=== PATIENT | female | born 1945 | race Caucasian/White ===

== ENCOUNTER → 2019-03-20 12:12 | Outpatient (CLI) | payer MEDICARE, MEDICAID, SELFPAY ==
[2019-03-20 12:47] LABS: Absolute Lymphocyte Count 2.55 X10^3/ul (0.83-4.51); Absolute Neutrophil Count 2.3 X10^3/uL (2.0-7.7); Basophil# 0.02 X10^3/uL; Basophil% 0.4 % (0-1); Eosinophil# 0.12 X10^3/uL; Eosinophils% 2.3 % (0-5); Hematocrit 37.8 % (37-47); Hemoglobin 12.8 g/dl (12.0-15.0); Lymphocyte # 2.55 X10^3/ul (4.0); Lymphocyte % 48.4 % (19-41); Mean Corp Hgb Conc 33.9 g/gl (32-36); Mean Corpuscular Hgb 30.3 pg (27.0-32.0); Mean Corpuscular Volume 89.6 fL (81-99); Mean Platelet Vol. 8.8 fl (6.2-12.0); Monocyte# 0.32 X10^3/uL; Monocyte% 6.1 % (0-10); Neutrophil # 2.25 X10^3/uL (2.7-7.7); Neutrophil % 42.6 % (47-70); Platelet Count 312 K/mm3 (150-450); RBC Distribution Width CV 14.6 % (11.6-14.6); RBC Distribution Width SD 47.5 fl (35.1-43.9); Red Blood Count 4.22 M/mm3 (4.2-5.4); White Blood Count 5.3 K/mm3 (4.4-11.0)
[2019-03-20 12:49] LABS: POSITIVE COUNT NO; POSITIVE DIFFERENTIAL NO; POSITIVE MORPHOLOGY NO
[2019-03-20 12:54] LABS: International Normalized Ratio 3.6; Prothrombin Time (Protime)PT. 36.1 SECONDS (11.7-14.9)
[2019-03-20 13:24] LABS: Hemoglobin A1c 7.9 % (4.2-6.3)
[2019-03-20 13:30] LABS: AST(SGOT) 17 U/L (15-37); Alanine Aminotransfer ALT/SGPT 18 U/L (13-56); Albumin, Serum 3.7 g/dL (3.2-5.0); Alkaline Phosphatase 53 U/L (45-117); Anion Gap 7 (5-15); BUN 8 mg/dL (7-18); BUN/Creat Ratio 13.7 RATIO (10-20); Calcium,Total 8.5 mg/dL (8.5-10.1); Chloride 103 mmol/L (98-107); Cholesterol 165 mg/dL (200); Creatinine, Serum 0.58 mg/dL (0.55-1.02); EST Glomerular Filtration Rate 108 mL/min (>60); Est Glom Filt Rate - Afr Amer 131 mL/min (>60); Globulin 3.6 g/dL (2.2-4.2); Glucose 106 mg/dL (74-106); High Density Lipoprotein 32 mg/dL; Potassium 2.9 mmol/L (3.5-5.1); Protein, Total 7.3 g/dL (6.4-8.2); Sodium Level 137 mmol/L (136-145); Thyroid Stim Hormone (TSH) 0.54 uIU/mL (0.358-3.74); Triglycerides 203 mg/dL; Very Low Density Lipoprotein 41 mg/dL (5-40)
== END ==
PROVIDERS: Visit Provider Nurse Practitioner Adult Health
DX: I10 Essential (primary) hypertension (principal); E78.2 Mixed hyperlipidemia; F41.1 Generalized anxiety disorder; R73.01 Impaired fasting glucose; Z95.2 Presence of prosthetic heart valve; Z86.73 Personal history of transient ischemic attack (TIA), and cerebral infarction without residual deficits
CPT/HCPCS: 36415; 80053; 80061; 83036; 84443; 85025; 85610

== ENCOUNTER → 2019-03-22 11:33 | Outpatient (CLI) | payer MEDICARE, MEDICAID, SELFPAY ==
[2019-03-22 13:19] LABS: International Normalized Ratio 2.6; Prothrombin Time (Protime)PT. 27.9 SECONDS (11.7-14.9)
== END ==
PROVIDERS: Family Provider Nurse Practitioner Adult Health; PCP Nurse Practitioner Adult Health; Referring Provider Nurse Practitioner Adult Health; Visit Provider Nurse Practitioner Adult Health
DX: Z86.73 Personal history of transient ischemic attack (TIA), and cerebral infarction without residual deficits (principal)
CPT/HCPCS: 36415; 85610

== ENCOUNTER → 2019-03-26 16:55 | Outpatient (CLI) | payer MEDICARE, MEDICAID, SELFPAY | PROVIDERS: Family Provider Nurse Practitioner Adult Health; PCP Nurse Practitioner Adult Health | DX: J41.8 Mixed simple and mucopurulent chronic bronchitis (principal); I10 Essential (primary) hypertension; F41.1 Generalized anxiety disorder ==

== ENCOUNTER → 2019-03-28 | Outpatient (CLI) | payer MEDICARE, MEDICAID, SELFPAY ==
--- NOTE | 2019-03-28 15:40 | RAD_ITS ---
HISTORY: Left shoulder pain radiating from neck. COMPARISON: None FINDINGS: # of images incl. paperwork: 4 XR Spine Cervical 4 images. Findings: The patient is edentulous. Sternal wires and mediastinal clips. With use of the swimmer's lateral, bony alignment is evaluated from the skull base to T1. Alignment is normal. Vertebral body height is preserved. Degenerative disc disease is present at several levels, greatest at the C4-C5 level. Facets are arthropathic. Prevertebral and paraspinal soft tissues are normal. Uncovertebral hypertrophy is present at several levels. The odontoid is normal in its relationship to lateral masses without fracture. Hardware fixation from craniotomy. RAD/Cerv Spine 2 or 3 Views IMPRESSION: No acute fracture or traumatic subluxation of the cervical spine. at 0544 Reported and signed by: Watson Egan MD Electronically Signed: Watson Egan MD at 5:43 EDT Tel , Service support ,
--- NOTE | 2019-03-28 15:40 | RAD_ITS ---
HISTORY: PAIN TO SACRUM AND LOW BACK, HX OF SACRAL FX AND PELVIC FX IN PAST COMPARISON: None FINDINGS: # of images incl. paperwork: 3 XR Sacrum/Coccyx 3 Views: Aortic and iliac atherosclerotic disease. Sacroiliac joint arthritis. No displaced fractures are identified. The SI joints are unremarkable. The sacral neural foramina appear intact. The most inferior coccygeal segment is subluxed anterior low date to the second coccygeal segment. RAD/Sacrum-Coccyx min 2 Views IMPRESSION: Possible anterior subluxation of the bottom coccygeal segment due to ligamentous disruption. at 0546 Reported and signed by: Watson Egan MD Electronically Signed: Watsno Egan MD at 5:45 EDT Tel , Service support ,
[2019-03-28 17:04] LABS: Amphetamine Urine VISTA NEGATIVE (<1000 ng/mL); Barbiturate Urine VISTA NEGATIVE (< 200 ng/mL); Benzodiazepine Urine VISTA NEGATIVE (< 200 ng/mL); Cocaine Urine VISTA NEGATIVE (< 300 ng/mL); Ecstacy Urine VISTA NEGATIVE (< 500 ng/mL); Methadone Urine VISTA NEGATIVE (< 300 ng/mL); PCP Urine VISTA NEGATIVE (< 25 ng/mL); THC Urine VISTA NEGATIVE (< 50 ng/mL); Vista UDS pH Range 6
== END | disposition home or self-care (01) ==
PROVIDERS: Family Provider Nurse Practitioner Adult Health; PCP Nurse Practitioner Adult Health; Referring Provider Anesthesiology Pain Medicine; Visit Provider Anesthesiology Pain Medicine
DX: M54.2 Cervicalgia (principal); M54.9 Dorsalgia, unspecified; F11.20 Opioid dependence, uncomplicated
CPT/HCPCS: 72040; 72220; 80307

== ENCOUNTER 2019-06-22 12:21 | Inpatient (IN) | payer MEDICARE, SELFPAY ==
[2019-06-22] VITALS (10 sets, daily range): BP systolic 80–116; BP diastolic 40–72; PULSE 80–116; RESP 14–18; TEMP 36.4–37.6; O2SAT 92–100; BMI 19.9; BMI 21.4; BMI 21.5
--- NOTE | 2019-06-22 12:36 | CT_ITS ---
STUDY: CT BRAIN WITHOUT CONTRAST REASON FOR EXAM: Female, 73 years old. Confusion. RADIATION DOSAGE (If Supplied By Facility): CTDIvol = ( 44.99 ) mGy, DLP = ( 745.49 ) mGycm TECHNIQUE: Transaxial CT imaging of the brain was performed without administration of intravenous contrast material. Individualized dose optimization techniques were used for this CT. COMPARISON: No relevant priors. FINDINGS: Normal soft tissue structures. Normal calvarium. There is mild cerebral atrophy with widening of the extra-axial spaces and ventricular dilatation. There are areas of decreased attenuation within the white matter tracts of the supratentorial brain, consistent with microvascular disease changes. Focal encephalomalacia in the left frontal lobe in keeping with prior ischemic change. Small old lacunar infarct in the posterior aspect of the insular cortex of the right temporal lobe as well as the left temporal lobe. Normal brainstem. Normal cerebellum. There is no intracranial hemorrhage. There are no findings of an acute ischemic infarction. Atherosclerotic calcification of the vertebral arteries as well as the cavernous portions of the internal carotid arteries bilaterally. Normal visualized paranasal sinuses. CT/Brain/Head without Contrast IMPRESSION: Chronic involutional changes of the brain. Electronically Signed: Ander Grider, at 13:35 EDT , Service support ,
--- NOTE | 2019-06-22 12:36 | RAD_ITS ---
STUDY: X-RAY CHEST REASON FOR EXAM: Female, 73 years old. Confusion. Intermittent headaches. TECHNIQUE: Single AP portable view of the chest. COMPARISON: None. FINDINGS: EKG electrodes are seen. Minimal increased linear markings are seen at the lung bases suggest some mild bibasilar linear atelectasis. There is no demonstrated pleural abnormality. Sternal cerclage wires and vascular clips are present from a prior sternotomy and coronary artery bypass graft procedure (CABG). Normal mediastinum and corky. Normal visualized pulmonary arteries. There is atherosclerotic calcification of the aortic arch with tortuosity. There are diffuse degenerative changes of the visualized thoracic spine. Normal visualized ribs, clavicles, and shoulders. There is no demonstrated abnormality of the visualized soft tissue structures of the upper abdomen. RAD/Chest 1 View (Portable) IMPRESSION: Findings suggestive of intimal linear atelectasis at the lung bases. Electronically Signed: Ander Grider, at 13:09 EDT , Service support ,
--- NOTE | 2019-06-22 12:36 | EKG12_ITS ---
Test Reason : CONFUSION Blood Pressure : / mmHG Vent. Rate : 107 BPM Atrial Rate : 062 BPM P-R Int : 000 ms QRS Dur : 074 ms QT Int : 518 ms P-R-T Axes : 000 050 055 degrees QTc Int : 691 ms Normal Sinus Rhythm with PAC's Cannot rule out Inferior infarct , age undetermined Prolonged QT Non-specific ST-T wave changes Abnormal ECG Confirmed by MAURISIO DELEON ([id number]), legal editor SLADE MAN ([id number]) on 06/28/2019 9:42:00 AM Referred By: Jose Miguel Mallory Confirmed By:MAURISIO DELEON
--- NOTE | 2019-06-22 12:37 | ED.RN ---
Dtr at bedside, noted that pt has been confused x3 days. Normal A&Ox3.
--- NOTE | 2019-06-22 13:02 | NURSING ---
NO OLD EKGS
[2019-06-22 13:04] LABS: Absolute Lymphocyte Count 0.76 X10^3/uL (0.83-4.51); Basophil# 0.01 X10^3/uL; Basophil% 0.1 % (0-1); Eosinophil# 0.01 X10^3/uL; Eosinophils% 0.1 % (0-5); Hemoglobin 12.6 g/dL (12.0-15.0); Lymphocyte # 0.76 X10^3/ul (4.0); Lymphocyte % 10.1 % (19-41); Mean Corpuscular Hgb 30.7 pg (27.0-32.0); Mean Corpuscular Volume 87.8 fL (81-99); Mean Platelet Vol. 10.2 fl (6.2-12.0); Monocyte# 0.68 X10^3/uL; Monocyte% 9.1 % (0-10); NRBC Flagged by Analyzer 0 % (0-5); Neutrophil # 5.98 X10^3/uL (2.7-7.7); Neutrophil % 79.7 % (47-70); Platelet Count 191 K/mm3 (150-450); RBC Distribution Width CV 12.7 % (11.6-14.6); RBC Distribution Width SD 40.8 fl (35.1-43.9); White Blood Count 7.5 K/mm3 (4.4-11.0)
[2019-06-22 13:17] LABS: International Normalized Ratio 1.3; Prothrombin Time (Protime)PT. 16.4 SECONDS (11.7-14.9)
[2019-06-22 13:25] LABS: ALB/GLOB Ratio 0.6 RATIO (0.9-2.4); AST(SGOT) 9 U/L (15-37); Alanine Aminotransfer ALT/SGPT 13 U/L (13-56); Albumin, Serum 2.8 g/dL (3.2-5.0); Alkaline Phosphatase 63 U/L (45-117); Anion Gap 10 (5-15); BUN 34 mg/dL (7-18); Calcium,Total 10.4 mg/dL (8.5-10.1); Chloride 97 mmol/L (98-107); Creatinine, Serum 1.31 mg/dL (0.55-1.02); EST Glomerular Filtration Rate 43 mL/min (>60); Est Glom Filt Rate - Afr Amer 51 mL/min (>60); Estimated Creatinine Clearance 28.29 ml/min; Glucose 361 mg/dL (74-106); Protein, Total 7.8 g/dL (6.4-8.2); Sodium Level 131 mmol/L (136-145)
[2019-06-22 13:29] LABS: Lactic Acid 2.2 mmol/L (0.4-2.0)
--- NOTE | 2019-06-22 14:20 | ED.VIS.GEN ---
History of Present Illness Chief Complaint: Confusion Narrative: 73-year-old female presents with confusion, general weakness, and twitching. She has a history of brain bypass but she and her daughter did not recall exactly what the surgery was. It was approximately 2009. She had some sort of instrumentation on her brain which they state was fairly extensive. She was having multiple seizures prior to this and they seem to resolve afterwards. For the past 4 days now, she has been confused, generally weak, and shaking all over. No seizure activity, just a tremor. She has also been complaining of fairly severe intermittent headaches in the frontal region. No slurred speech. No lateralizing weakness. She also has a history of urinary tract infections and has presented similarly in the past. Current severity is moderate Past Medical History - Allergies and Home Meds Allergies/Adverse Reactions: Allergies Iodinated Contrast Media [CONTRASTS] Allergy (Mild, Verified 06/22/19 12:49) Unknown pt unknown of allergy reaction Primary Care Physician: Cyndi Gutierrez, ARTI-C [Primary Care Provider] - Smoking Status: Current every day smoker Review of Systems All systems negative except as indicated General: Denies: Chills, Fever, Sweats Eyes: Denies: Visual changes - bilaterally, Diplopia ENT: Denies: Rhinorrhea, Sore throat Cardiovascular: Denies: Chest pain, Palpitations Respiratory: Denies: Dyspnea, Cough, Dyspnea on exertion Gastrointestinal: Reports: Nausea. Denies: Abdominal pain, Vomiting, Diarrhea, Melena, Hematochezia Genitourinary: Denies: Dysuria, Hematuria, Frequency Musculoskeletal: Reports: Myalgias. Denies: Back pain, Extremity Pain Skin: Denies: Rash, Wounds Neurological: Reports: Headache, Weakness. Denies: Numbness Endocrine: Denies: Polydipsia Hematologic: Denies: Easy bruising Physical Exam Vital Signs/Narrative: Vital Signs Temp Pulse Resp BP Pulse Ox 06/22/19 12:32 99.6 F H 106 H 14 116/59 L 94 06/22/19 12:22 97.7 F L 116 H 18 106/52 L 92 General: Cachectic Head: Normocephalic, Atraumatic Eyes: Perrl, EOMI ENT: No rhinorrhea, Dry mucous membranes Neck: Supple, Nontender Cardiovascular: Regular rate, Regular rhythm, No murmurs Respiratory: No distress, CTA bilaterally, Chest nontender Abdomen: Soft, Nontender, Nondistended, Normal bowel sounds Back: Nontender, Normal Inspection Extremities: Nontender, No edema Skin: Normal color, No rash Neurological: Alert, Oriented x3, Cranial nerves II-XII grossly intact, Normal Strength, Normal Sensation Psychological: Normal affect, Normal Mood Diagnostic/Tx/Re-eval - Medical Decision Making Lactic acid slightly elevated at 2.2. No significant leukocytosis. She does have a temperature of 99.[address] brain and chest x-ray both negative but urine does look infected. It is loaded with leukocytes, 4+ bacteria, and leukoesterase. I sent it for culture and send blood cultures as well. She was treated with IV Rocephin. Presumably this is the source for her delirium. Her neurologic exam is fairly unremarkable. Speech is clear. No significant confusion here but her daughter states that she has been intermittently delirious. With her multiple comorbidities, urinary tract infection, and delirium, I do feel she meets criteria for full admission and requires intravenous antibiotics. I do not suspect meningitis or encephalitis at this time. I spoke with the hospitalist and she was admitted. EKG interpretation-sinus tachycardia, rate 107, no acute ischemic changes, QTC slightly prolonged at 691. No prior for comparison. ED Disposition - Plan for ED Patient: Disposition: Acute Care [facility] Diagnosis: UTI (urinary tract infection), Acute delirium Referrals: Cyndi Gutierrez, AG [employer] FIELD SERVICE TECHNICIAN-C [Primary Care Provider] -
[2019-06-22 14:36] LABS: Mucous, Urine 0 SEEN /hpf (<or=2+); Red Blood Cells-Urine 0 SEEN /hpf (0-5); Squamous Epithelial Cells - UA 0 SEEN /hpf (5-10)
[2019-06-22 14:55] LABS: Color, Urine Yellow (Yellow); Glucose, Dipstick 250 mg/dl (Normal); Ketone-Dipstick 5 mg/dl (Negative); Leukocyte Esterase-Dipstick 500 /ul (Negative); Nitrite-Dipstick Negative (Negative); Occult Blood-Urine 25 /ul (Negative); Protein-Dipstick 100 mg/dl (Negative); Specific Gravity, Urine 1.015 (1.002-1.030); Urine Bilirubin Dipstick Negative (Negative); Urine Clarity Cloudy (Clear); Urine Urobilinogen Normal (Normal)
[2019-06-22 15:08] LABS: White Blood Cells 50-100 SEEN /hpf (0-5)
[2019-06-22 15:09] LABS: Amorphous Sediment 1+; Bacteria 4+ /hpf (None Seen)
--- NOTE | 2019-06-22 15:47 | NURSING ---
DR DINH FOR DR OLIVAS
--- NOTE | 2019-06-22 15:55 | NURSING ---
DR DINH IN ROOM
--- NOTE | 2019-06-22 15:55 | NURSING ---
MED SURG CYSTITIS, ACUTE KIDNEY INJURY FABRIZIO
--- NOTE | 2019-06-22 16:06 | HP.PCM_ITS ---
Problem List (1) COPD (chronic obstructive pulmonary disease) Status: Chronic (2) History of colon cancer Status: Chronic (3) Hyperlipidemia Status: Chronic (4) Migraine Status: Chronic (5) Status post coronary artery bypass graft Status: Chronic (6) Coronary artery disease Status: Chronic Comment: Status post CABG and stents. (7) Atrial fibrillation Status: Chronic (8) Hypertension Status: Chronic (9) UTI (urinary tract infection) Status: Acute (10) Acute delirium Status: Acute History of Present Illness Date of Admission: 06/22/19 Chief Complaint: Confusion, headache. The patient is a 73 year old F with multiple medical comorbidities as mentioned above presented to the emergency room because of confusion and headache. The patient herself is a poor informant and was not able to provide consistent history. Patient's daughter was at the bedside and gave most of the information. According to patient's daughter, patient has been having issues with confusion and disorientation which was noticed today by the patient's at home. Usually, the patient is alert and related x3 but this morning, she has been confused, not knowing when she is going to and she did not know where she is at. When I saw the patient, patient was alert and oriented x3. The patient complained of headache on the right frontal region that has been going on for 3 days and she attributes the headache to the migraine. She has history of stroke and according to the patient's daughter, she had some type of brain surgery at that time but she is not sure what type of it. She has history of CAD status post CABG and stents and she has been on Plavix, nitrate and beta- ranjan as well as for infiltrate. She has history of hypertension which has been under control with metoprolol and nitrates. She has history of chronic atrial fibrillation and she has been on metoprolol for rate control and Coumadin for anticoagulation. She has history of colon cancer status post colectomy and she is in remission. In the emergency department, patient was afebrile, tachycardic, blood pressure was stable, pulse ox maintained on room air. Routine blood work was remarkable for sodium of 131, BUN of 34, creatinine is 1.31. Blood glucose was 361. Lactic acid was 2.2. EKG revealed fibrillation, rate is controlled, no acute ischemic changes. Troponin is negative. Urinalysis revealed cloudy urine, there was 500 leukocyte esterase, 50-100 WBCs, 4+ bacteria. CT scan brain showed no acute findings. Chest x-ray showed no acute infiltrate, consolation or effusion. She is being admitted for acute cystitis with metabolic encephalopathy/delirium as well as acute kidney injury and hyponatremia. Past Medical History Past Medical History (Chronic Problems): Chronic Problems COPD (chronic obstructive pulmonary disease) (Chronic) History of colon cancer (Chronic) Hyperlipidemia (Chronic) Migraine (Chronic) Status post coronary artery bypass graft (Chronic) Coronary artery disease (Chronic) Status post CABG and stents. Atrial fibrillation (Chronic) Hypertension (Chronic) Allergies Iodinated Contrast Media [CONTRASTS] Allergy (Mild, Verified 06/22/19 12:49) Unknown pt unknown of allergy reaction Home Medications: Ambulatory Orders Medication Instructions Recorded Cetirizine HCl 10 mg PO DAILY 06/22/19 Clopidogrel Bisulfate [Clopidogrel] 75 mg PO DAILY 06/22/19 Duloxetine Hcl [Cymbalta] 60 mg PO QHS 06/22/19 Ergocalciferol [Vitamin D] 50,000 unit PO MO 06/22/19 Fenofibrate 54 mg PO DAILY 06/22/19 Hydrocodone/Acetaminophen 1 tab PO BID 06/22/19 [Hydrocodone-Acetamin 5-325 mg] Isosorbide Mononitrate 10 mg PO BID 06/22/19 Metoprolol Succinate [Toprol Xl] 25 mg PO DAILY 06/22/19 Montelukast [Singulair] 10 mg PO QHS 06/22/19 Omeprazole 20 mg PO DAILY 06/22/19 Ropinirole HCl 2 mg PO BID 06/22/19 Topiramate 25 mg PO QHS 06/22/19 Trazodone HCl 100 mg PO QHS 06/22/19 Warfarin [Coumadin ([facility])] 3 mg PO DAILY 06/22/19 Surgical History: cholecystectomy, colectomy, coronary bypass surgery Psychiatric History: Depression Lives: Spouse/ Significant Other Smoking Status: Current every day smoker Tobacco Use: Cigarettes Alcohol: None Drugs: None - *Family History Maternal History Items: No pertinent history Paternal History Items: No pertinent history Review of Systems Constitutional: Reports: Anorexia, Weakness. Denies: Chills, Fever Eyes: Denies: Blurred vision, Double vision, Drainage, Redness HEENT: Reports: Head Aches. Denies: Difficulty Hearing, Ear Pain, Eye Pain, Nasal bleeding, Nasal Congestion, Sinus Drainage, Sore Throat Cardiovascular: Denies: Chest Pain, Chest Pressure, Chest Tightness, Heaviness, Light Headedness, Palpitations, Paroxysmal Noc. Dyspnea, Syncope Respiratory: Denies: Cough, Pleuritic Pain, Shortness of Breath, Sputum production, Wheezing Gastrointestinal: Denies: Abdominal Pain, Constipation, Diarrhea, Nausea, Vomiting Genitourinary: Reports: Frequency. Denies: Dysuria, Hematuria Musculoskeletal: Denies: Arm Pain, Back Pain, Foot Pain Skin: Denies: Dryness, Rash Neurological: Reports: Confusion, Headaches. Denies: Balance problems, Double vision, Change in Speech, Slurred speech, Focal weakness, Incoordination, Numbness Psychiatric: Reports: Depression. Denies: Anxiety Endocrine: Denies: Change in Body Habitus, Polydipsia, Polyuria VTE Information - Inpt Only VTE Present on Admission: No VTE Mechan Device Prophylaxis: None VTE Pharm Prophylaxis ordered?: No Patient Problems: Active and Suspected Problems UTI (urinary tract infection) (Acute) Acute delirium (Acute) - Physical Exam General: Alert, Oriented x3, Cooperative, No apparent distress HEENT: Atraumatic, PERRLA, EOMI, Normocephalic Oral: No Gingival or Mucosal Lesions/ Ulcerations, Dry Mucosa Neck: Supple, No JVD, Negative Carotid Bruits, Trachea Midline, Thyroid Normal Size and Texture Lungs: Clear to auscultation, Normal air movement, No rhonchi, No wheeze, No rales, Diminished Cardiovascular: Normal S1, Normal S2, No murmurs, PMI Normal, Irregular Rate Abdomen: Bowel Sounds Present, Soft, Non Tender, Non-Distended, No Hepato- splenomegaly Extremities: No clubbing, No cyanosis, No edema Skin: No rashes, No breakdown Lymphatic: No Cervical, Supraclavicular, or Inguinal Adenopathy Neurological: Cranial nerves II-XII grossly intact, Motor Exam 5/5 strength throughout Psych/Mental Status: Normal Affect, Appropriate Vital Signs Temp Pulse Resp BP Pulse Ox 99.6 F H 82 14 114/59 L 97 06/22/19 12:32 06/22/19 15:31 06/22/19 15:31 06/22/19 15:31 06/22/19 15:31 Oxygen Flow Rate (L/min) 3 Oxygen Delivery Method Room Air Weight: 102 lb Body Mass Index (BMI) 19.9 Intake and Output for Last 24 Hours 06/20/19 06/21/19 06/22/19 23:59 23:59 23:59 Intake Total 500 / 500 Balance 500 / 500 Laboratory Tests Past 24 Hrs 06/22/19 06/22/19 06/22/19 12:45 12:45 12:45 WBC 7.5 RBC 4.10 L Hgb 12.6 Hct 36.0 L MCV 87.8 MCH 30.7 MCHC 35.0 RDW Std Deviation 40.8 RDW Coeff of Saige 12.7 Plt Count 191 MPV 10.2 Immature Gran % (Auto) 0.900 Neut % (Auto) 79.7 H Lymph % (Auto) 10.1 L Caswell % (Auto) 9.1 Eos % (Auto) 0.1 Baso % (Auto) 0.1 Absolute Neuts (auto) 6.0 Absolute Lymphs (auto) 0.76 L Nucleated RBC % 0 PT 16.4 H INR 1.3 Sodium 131 L Potassium 4.0 Chloride 97 L Carbon Dioxide 24.0 Anion Gap 10 BUN 34 H Creatinine 1.31 H Estim Creat Clear Calc 28.29 Est GFR (MDRD) Af Amer 51 L Est GFR (MDRD) Non-Af 43 L BUN/Creatinine Ratio 26.0 H Glucose 361 H Lactic Acid Calcium 10.4 H Total Bilirubin 0.40 AST 9 L ALT 13 Alkaline Phosphatase 63 Troponin I < 0.015 Total Protein 7.8 Albumin 2.8 L Globulin 5.0 H Albumin/Globulin Ratio 0.6 L Urine Color Urine Clarity Urine pH Ur Specific [place] Urine Protein Urine Glucose (UA) Urine Ketones Urine Occult Blood Urine Nitrite Urine Bilirubin Urine Urobilinogen Ur Leukocyte Esterase Urine RBC Urine WBC Ur Squamous Epith Cells Amorphous Sediment Urine Bacteria Urine Mucus 06/22/19 06/22/19 12:45 14:35 WBC RBC Hgb Hct MCV MCH MCHC RDW Std Deviation RDW Coeff of Saige Plt Count MPV Immature Gran % (Auto) Neut % (Auto) Lymph % (Auto) [place] % (Auto) Eos % (Auto) Baso % (Auto) Absolute Neuts (auto) Absolute Lymphs (auto) Nucleated RBC % PT INR Sodium Potassium Chloride Carbon Dioxide Anion Gap BUN Creatinine Estim Creat Clear Calc Est GFR (MDRD) Af Amer Est GFR (MDRD) Non-Af BUN/Creatinine Ratio Glucose Lactic Acid 2.2 H Calcium Total Bilirubin AST ALT Alkaline Phosphatase Troponin I Total Protein Albumin Globulin Albumin/Globulin Ratio Urine Color Yellow Urine Clarity Cloudy Urine pH 5.0 Ur Specific [place] 1.015 Urine Protein 100 H Urine Glucose (UA) 250 H Urine Ketones 5 H Urine Occult Blood 25 H Urine Nitrite Negative Urine Bilirubin Negative Urine Urobilinogen Normal Ur Leukocyte Esterase 500 H Urine RBC 0 SEEN Urine WBC 50-100 SEEN Ur Squamous Epith Cells 0 SEEN Amorphous Sediment 1+ Urine Bacteria 4+ Urine Mucus 0 SEEN Clinical Impression(s) from Imaging Studies Brain CT 06/22/19 12:36 IMPRESSION: Chronic involutional changes of the brain. Electronically Signed: Ander Grider, at 13:35 EDT , Service support , Chest X-Ray 06/22/19 12:36 IMPRESSION: Findings suggestive of intimal linear atelectasis at the lung bases. Electronically Signed: Ander Grider, at 13:09 EDT , Service support , Assessment/Plan All Active Problems UTI (urinary tract infection) (Acute) Acute delirium (Acute) This is a 73 years old female patient presented to the emergency room because of confusion, headache and poor oral intake, found to have acute cystitis complicated by metabolic encephalopathy as well as acute kidney injury and hyponatremia. #1 acute cystitis: Without evidence of sepsis or severe sepsis. Lactic acid is elevated. Chest x-ray showed no acute findings. Plan: Admit to Medr floor, telemetry, blood culture, urine culture, start IV Rocephin, repeat lactic acid in 3 hours, repeat CBC and BMP tomorrow morning, PT OT evaluation and treatment. #2 metabolic encephalopathy/delirium: Probably secondary to acute infection. CT scan brain showed no acute findings. Patient complained of headache which is likely because of migraine. #3 acute kidney injury/hyponatremia: Due to infection and poor oral intake. Baseline creatinine is normal. Admission creatinine is 1.31, BUN is 34. Sodium is 131 likely because of hypovolemic hyponatremia. Plan: IV fluids with normal saline, input output chart, repeat BMP tomorrow morning. #4 hyperglycemia: Without history of diabetes. Blood sugar on admission is 361. Plan: Hemoglobin SC, Accu-Cheks every 6 hours, insulin sliding scale. #5 CAD status post CABG and stents: No chest pain, stable. Continue Plavix, fenofibrate, nitrate and metoprolol. #6 chronic atrial fibrillation: Rate is controlled, continue metoprolol for rate control and continue Coumadin for anticoagulation. INR is 1.3. #7 hypertension: Blood pressure stable, continue nitrate and metoprolol. #8 hyperlipidemia: Continue fenofibrate. #9 history of colon cancer: Status post colectomy, in remission. #10 COPD: Clinically stable, pulse ox is maintained on room air. Plan for albuterol as needed. #11 migraine: Continue Topamax, Tylenol as needed. #12 DVT prophylaxis: On Coumadin, INR is 1.3. This note was generated with Pulse 8 dictation software. It may contain incorrect words, spelling, and punctuation that were not noted in checking the note before signing. Code Visit Inpatient E&M: 94432 Init Hosp L3
[2019-06-22] MEDS: Ceftriaxone 1 GM/50 ML BAG IV (16:17)
--- NOTE | 2019-06-22 16:22 | NURSING ---
NEW ROOM 322
[2019-06-22 16:57] LABS: Reflex Lactate? Y
[2019-06-22 17:57] LABS: Lactic Acid 1.6 mmol/L (0.4-2.0)
[2019-06-22] MEDS: 0.9% Normal Saline 1,000 ML 100 ML IV (18:41)
[2019-06-22] MEDS: Acetaminophen 325 MG Tablet 650 MG PO (18:44)
[2019-06-22] MEDS: Insulin Lispro 100 UNIT/ML INSULN.PEN SC (18:45)
[2019-06-22 20:36] LABS: Bedside Glucose 208 mg/dL (70-110)
[2019-06-22] MEDS: 0.9% Normal Saline 1,000 ML 999 ML IV (21:07)
[2019-06-22] MEDS: DULoxetine Hcl 60 MG Capsule PO (22:31)
[2019-06-22] MEDS: traZODone 100 MG Tablet PO (22:33)
[2019-06-22] MEDS: Pramipexole Di-HCl 1 MG Tablet PO (22:33)
[2019-06-22] MEDS: Montelukast 10 MG Tablet PO (22:34)
[2019-06-22] MEDS: Topiramate 25 MG Tablet PO (22:47)
[2019-06-23] VITALS (11 sets, daily range): BP systolic 93–118; BP diastolic 50–70; PULSE 79–106; RESP 18–20; TEMP 36.4–38.2; O2SAT 90–98
[2019-06-23] MEDS: Insulin Lispro 100 UNIT/ML INSULN.PEN SC ×5 (00:14→23:48)
[2019-06-23 00:21] LABS: Bedside Glucose 192 mg/dL (70-110)
[2019-06-23] MEDS: 0.9% Normal Saline 1,000 ML 100 ML IV (04:31)
[2019-06-23] MEDS: Acetaminophen 325 MG Tablet 650 MG PO (05:00)
[2019-06-23 06:30] LABS: Absolute Lymphocyte Count 0.89 X10^3/uL (0.83-4.51); Absolute Neutrophil Count 4.6 X10^3/uL (2.0-7.7); Basophil# 0.02 X10^3/uL; Basophil% 0.3 % (0-1); Eosinophil# 0.01 X10^3/uL; Eosinophils% 0.2 % (0-5); Hematocrit 30.8 % (37-47); Hemoglobin 10.6 g/dL (12.0-15.0); Lymphocyte # 0.89 X10^3/ul (4.0); Lymphocyte % 15.1 % (19-41); Mean Corp Hgb Conc 34.4 g/dL (32-36); Mean Corpuscular Hgb 30.4 pg (27.0-32.0); Mean Corpuscular Volume 88.3 fL (81-99); Mean Platelet Vol. 10.1 fl (6.2-12.0); Monocyte# 0.39 X10^3/uL; Monocyte% 6.6 % (0-10); NRBC Flagged by Analyzer 0 % (0-5); Neutrophil # 4.57 X10^3/uL (2.7-7.7); Neutrophil % 77.3 % (47-70); Platelet Count 149 K/mm3 (150-450); RBC Distribution Width CV 12.7 % (11.6-14.6); RBC Distribution Width SD 41.1 fl (35.1-43.9); Red Blood Count 3.49 M/mm3 (4.2-5.4); White Blood Count 5.9 K/mm3 (4.4-11.0)
[2019-06-23 06:36] LABS: Bedside Glucose 216 mg/dL (70-110)
[2019-06-23 06:42] LABS: International Normalized Ratio 1.3; Prothrombin Time (Protime)PT. 15.7 SECONDS (11.7-14.9)
[2019-06-23 06:50] LABS: Anion Gap 10 (5-15); BUN 25 mg/dL (7-18); BUN/Creat Ratio 34.7 RATIO (10-20); Calcium,Total 8.8 mg/dL (8.5-10.1); Chloride 106 mmol/L (98-107); Creatinine, Serum 0.72 mg/dL (0.55-1.02); EST Glomerular Filtration Rate 85 mL/min (>60); Est Glom Filt Rate - Afr Amer 102 mL/min (>60); Estimated Creatinine Clearance 37.06 ml/min; Glucose 209 mg/dL (74-106); Potassium 3.1 mmol/L (3.5-5.1); Sodium Level 136 mmol/L (136-145)
--- NOTE | 2019-06-23 07:37 | PN_ITS ---
Patient Problems: Active and Suspected Problems UTI (urinary tract infection) (Acute) Acute delirium (Acute) Subjective: Ms Pino is a 73 yo female who presented to the ED yesterday 06/22/19 with confusion and BARROSO. She had a mild lactic acid elevation and her UA looked quite infected. Still confused some but interactive. Had to awaken from pretty deep sleep so this may be contributing to her confusion this am. Vitals/I&O's: Vital Signs Temp Pulse Resp BP Pulse Ox 98.8 F 87 20 H 100/52 L 97 06/23/19 06:20 06/23/19 06:20 06/23/19 06:20 06/23/19 06:20 06/23/19 06:20 Oxygen Flow Rate (L/min) 2 Oxygen Delivery Method Room Air Weight: 49.895 kg Body Mass Index (BMI) 21.4 Intake and Output for Last 24 Hours 06/21/19 06/22/19 06/23/19 23:59 23:59 23:59 Intake Total 1845 / 2445 1357 / 1357 Balance 1845 / 2445 1357 / 1357 General: Cooperative, No apparent distress, Well developed, Well nourished, Confused, - - mild confusion, sleeping very soundly upon initial exam, non-toxic appearing, looks comfortable HEENT: Atraumatic, PERRLA, Normocephalic, EAC Clear Oral: Moist Mucosa, No Gingival or Mucosal Lesions/ Ulcerations Neck: Supple, No JVD, Negative Hepatojugular Reflux, No Nodes, No Nuchal Rigidity, Trachea Midline, Thyroid Normal Size and Texture Lungs: Clear to auscultation, No rhonchi, No wheeze, No rales, - - diffusely diminished Cardiovascular: Regular rate, Regular Rhythm, Normal S1, Normal S2, No murmurs, No Ectopic Activity, No rub noted, No Gallop Abdomen: Bowel Sounds Present, Soft, Non Tender, Non-Distended, No Hepato- splenomegaly, No hernias noted Extremities: No cyanosis, No edema, Capillary Refill Less than 3 Seconds, No Calf Tenderness, Clubbing - mild, Peripheral Pulses Normal Skin: No rashes, No breakdown Musculoskeletal: No Tenderness to Palpation of Joints or Extremities, No Muscle Wasting, - - decreased lean mm mass Lymphatic: - - no cervical or supraclavicular LAD Neurological: Cranial nerves II-XII grossly intact, Neuro grossly intact, Motor Exam 5/5 strength throughout, Muscle tone normal, Coordination normal Psych/Mental Status: - - mild confusion, calm, pleasant Laboratory Results 06/22/19 12:45: WBC 7.5, RBC 4.10 L, Hgb 12.6, Hct 36.0 L, MCV 87.8, MCH 30.7, MCHC 35.0, RDW Std Deviation 40.8, RDW Coeff of Saige 12.7, Plt Count 191, MPV 10.2, Immature Gran % (Auto) 0.900, Neut % (Auto) 79.7 H, Lymph % (Auto) 10.1 L, [place] % (Auto) 9.1, Eos % (Auto) 0.1, Baso % (Auto) 0.1, Absolute Neuts (auto) 6.0, Absolute Lymphs (auto) 0.76 L, Nucleated RBC % 0 06/22/19 12:45: PT 16.4 H, INR 1.3 06/22/19 12:45: Sodium 131 L, Potassium 4.0, Chloride 97 L, Carbon Dioxide 24.0, Anion Gap 10, BUN 34 H, Creatinine 1.31 H, Estim Creat Clear Calc 28.29, Est GFR (MDRD) Af Amer 51 L, Est GFR (MDRD) Non-Af 43 L, BUN/Creatinine Ratio 26.0 H, Glucose 361 H, Calcium 10.4 H, Total Bilirubin 0.40, AST 9 L, ALT 13, Alkaline Phosphatase 63, Troponin I < 0.015, Total Protein 7.8, Albumin 2.8 L, Globulin 5.0 H, Albumin/Globulin Ratio 0.6 L 06/22/19 12:45: Lactic Acid 2.2 H 06/22/19 12:45: Hemoglobin A1c 8.0 H 06/22/19 14:35: Urine Color Yellow, Urine Clarity Cloudy, Urine pH 5.0, Ur Specific Nordman 1.015, Urine Protein 100 H, Urine Glucose (UA) 250 H, Urine Ketones 5 H, Urine Occult Blood 25 H, Urine Nitrite Negative, Urine Bilirubin Negative, Urine Urobilinogen Normal, Ur Leukocyte Esterase 500 H, Urine RBC 0 SEEN, Urine WBC 50-100 SEEN, Ur Squamous Epith Cells 0 SEEN, Amorphous Sediment 1+, Urine Bacteria 4+, Urine Mucus 0 SEEN 06/22/19 17:20: Lactic Acid 1.6 06/22/19 18:32: POC Glucose 208 H 06/23/19 00:13: POC Glucose 192 H 06/23/19 06:15: POC Glucose 216 H 06/23/19 06:20: Sodium 136, Potassium 3.1 L, Chloride 106, Carbon Dioxide 20.0 L , Anion Gap 10, BUN 25 H, Creatinine 0.72, Estim Creat Clear Calc 37.06, Est GFR (MDRD) Af Amer 102, Est GFR (MDRD) Non-Af 85, BUN/Creatinine Ratio 34.7 H, Glucose 209 H, Calcium 8.8 06/23/19 06:20: WBC 5.9, RBC 3.49 L, Hgb 10.6 L, Hct 30.8 L, MCV 88.3, MCH 30.4, MCHC 34.4, RDW Std Deviation 41.1, RDW Coeff of Saige 12.7, Plt Count 149 L, MPV 10.1, Immature Gran % (Auto) 0.500, Neut % (Auto) 77.3 H, Lymph % (Auto) 15.1 L, [place] % (Auto) 6.6, Eos % (Auto) 0.2, Baso % (Auto) 0.3, Absolute Neuts (auto) 4.6, Absolute Lymphs (auto) 0.89, Nucleated RBC % 0 06/23/19 06:20: PT 15.7 H, INR 1.3 Current Medications Acetaminophen (Tylenol) 650 mg PO Q6H PRN PRN PRN Reason: Mild Pain (1-3)/Temp > 100.7 F Last Admin: 06/23/19 05:00 Dose: 650 mg Documented by: Hydrocodone Bitart/Acetaminophen ([place] 5mg-325mg) 1 tablet PO BID [facility] Last Admin: 06/22/19 22:35 Dose: Not Given Documented by: Albuterol Sulfate (Ventolin Aerosols) 2.5 mg INHALATION Q4H PRN PRN PRN Reason: Shortness of breath, wheezing Clopidogrel Bisulfate (Plavix) 75 mg PO DAILY [facility] Duloxetine HCl (Cymbalta) 60 mg PO QHS [facility] Last Admin: 06/22/19 22:31 Dose: 60 mg Documented by: [facility] Sodium Chloride () 1,000 mls @ 100 mls/hr IV .Q10H [facility] Last Admin: 06/23/19 04:31 Dose: 100 mls/hr Documented by: Ceftriaxone Sodium (Rocephin) 1 gm in 50 mls @ 100 mls/hr IV Q24 [facility] Insulin Human Lispro (Humalog Kwikpen (Bkc)) 0 unit SC Q6 [facility]; Protocol Last Admin: 06/23/19 06:19 Dose: 4 units Documented by: Isosorbide Mononitrate (Monoket) 10 mg PO BID [facility] Last Admin: 06/22/19 22:35 Dose: Not Given Documented by: Loratadine (Claritin) 10 mg PO DAILY [facility] Metoprolol Succinate (Toprol Xl (Beta Jay)) 25 mg PO DAILY [facility] Montelukast Sodium (Singulair) 10 mg PO QHS [facility] Last Admin: 06/22/19 22:34 Dose: 10 mg Documented by: Ondansetron HCl (Zofran) 4 mg IV Q8H PRN PRN PRN Reason: NAUSEA/VOMITING Pantoprazole Sodium (Protonix) 20 mg PO DAILY [facility] Pramipexole Dihydrochloride (Mirapex) 1 mg PO BID [facility] Last Admin: 06/22/19 22:33 Dose: 1 mg Documented by: Sodium Chloride () 10 - 40 ml IV UD PRN PRN Reason: SALINE FLUSH Topiramate (Topamax) 25 mg PO QHS [facility] Last Admin: 06/22/19 22:47 Dose: 25 mg Documented by: Trazodone HCl (Desyrel) 100 mg PO QHS [facility] Last Admin: 06/22/19 22:33 Dose: 100 mg Documented by: Warfarin Sodium (Coumadin (Pbkc)) 3 mg PO DAILY@1700 [facility] Medical Necessity - Tobacco Use Smoking Status: Current every day smoker Tobacco Use: Cigarettes Assessment/Plan All Active Problems UTI (urinary tract infection) (Acute) Acute delirium (Acute) Sepsis 22 UTI -lactate has resolved and BP is relatively stable -CX are pending (Blood and Urine) -Continue CTX for now and await sensitivities BASIL -resolving with hydration -avoid nephrotoxins -decrease rate of IVF t 50cc hr -pt voiding well Metabolic Encephalopathy -improving but doesn't seem at baseline yet -answers some questions but misses some orientation questions as well -ok to eat Hyponatremia -resolved Hypokalemia -PO 40 mEq of Kdur and recheck in am -check am Mag New DM-2 -A1c 8.0 -should be able to start Metformin prior to d/c -renal fxn now WNL -SSI AC for now -will need Carb control diet -will consult dietitian for diet recommendations for home going Lactic acidosis-mild -resolved with hydration CAD with h/o CABG/HPL/HTN/A-fib -Continue Plavix/Fenfibrate/coumadin/Metoprolol/Imdur -not on home statin -INR is subtherapeutic at 1.3--> increase to 5 mg dose and recheck in the am Tobacco Abuse -Recommend cessation -denies need for nicotine patch -Smokes 1PPD Depression -continue Cymbalta -continue Trazodone Seasonal Allergies -continue Zyrtec -continue Singulair Migraines -continue Topamax DVT prophylaxis -Heparin Sub q until INR therapeutic Code Visit Inpatient E&M: 24767 Init Hosp L3
[2019-06-23] MEDS: Fenofibrate 48 MG Tablet PO (08:51)
[2019-06-23] MEDS: Ceftriaxone 1 GM/50 ML BAG IV (10:11)
[2019-06-23] MEDS: Isosorbide Mononitrate 20 MG Tablet 10 MG PO (10:13)
[2019-06-23] MEDS: Pantoprazole Sodium 20 MG Tablet PO (10:13)
[2019-06-23] MEDS: Metoprolol(XL)Succ 25 MG Tablet PO (10:14)
[2019-06-23] MEDS: Clopidogrel Bisulfate 75 MG Tablet PO (10:14)
[2019-06-23] MEDS: Loratadine 10 MG Tablet PO (10:14)
[2019-06-23] MEDS: Pramipexole Di-HCl 1 MG Tablet PO ×2 (10:14→22:10)
[2019-06-23] MEDS: Heparin Injection (Vial) 5,000 UNIT/ML VIAL 5000 UNIT SC ×2 (10:25→22:30)
[2019-06-23] MEDS: HYDROcodone Bitartrate/Apap 5/325 Tablet PO ×3 (10:25→22:23)
[2019-06-23 12:51] LABS: Bedside Glucose 151 mg/dL (70-110)
--- NOTE | 2019-06-23 13:12 | CASEMGMT ---
RN CM NOTE: Attempted to complete RN CM admission assessment. Pt remains confused. No family present at this time. RN CM to attempt admission assessment at a later time. Stephen OKEEFEN RN CM
--- NOTE | 2019-06-23 15:34 | CHAPLAIN ---
Type of Pastoral Visit _x__ Initial Visit ___ Follow-up Visit ___ On-call Visit ___ General Patient Visit ___ Spiritual Assessment ___ Family Conference ___ Bereavement ___ Rapid Response ___ Code Blue ___ Other (describe below) Pastoral Care Referral From _x__ Patient ___ Family ___ Nurse ___ Physician ___ Peoplesoft Hr Developer ___ Education Instructor ___ Other (describe below) Sacrament/Intervention _x__ Active listening ___ Anointing ___ Gnosticist ___ Bereavement ___ Communion ___ Tari exploration ___ ___ Life review _x__ Prayer ___ Reconciliation ___ Sacrament of Sick _x__ Supportive presence ___ Wedding ___ Other (describe below) Pastoral Comments patient appears to be seeing and hearing things that are not accurate; pt talks about her family; pt expresses that she has pain
--- NOTE | 2019-06-23 16:24 | CCHN_ITS ---
Hospitalist Note Called to bedside as daughter had some concerns and wanted an update. Primary concern is that the pt is having a BARROSO on the L side. this is new. Pt still remains somewhat confused but overall is much less confused. 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 Unclear what she means, but sounds like she had graft placed. At that time she had the BARROSO but also was having seizures and stroke like sx. Currently, her speech is clear and her neuro exam is benign except for MS which is not q uite baseline. 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 Pt does have h/o migraines but would like to avoid triptans in this setting. Will increase [place] to TID and see if this helps as she does take chronic opiates at home. Continue home topamax and could consider MRA/MRI if sx worsen or don't improve as neurological exam except for mental status is WNL and BARROSO is new this afternoon. If BARROSO doesn't improve may need to consider LP as well. Also discussed current infection and daughter does confirm that she gets confused with infections. Discussed new dx of DM as well.
[2019-06-23 17:25] LABS: Bedside Glucose 208 mg/dL (70-110)
[2019-06-23] MEDS: DULoxetine Hcl 60 MG Capsule PO (22:09)
[2019-06-23] MEDS: Montelukast 10 MG Tablet PO (22:10)
[2019-06-23] MEDS: traZODone 100 MG Tablet PO (22:22)
[2019-06-23] MEDS: Topiramate 25 MG Tablet PO (22:23)
[2019-06-23] MEDS: 0.9% Normal Saline 1,000 ML 50 ML IV (22:30)
[2019-06-24 00:01] LABS: Bedside Glucose 196 mg/dL (70-110)
[2019-06-24 03:37] VITALS: BP 119/41; PULSE 97; RESP 20; TEMP 37.2; O2SAT 92
[2019-06-24] MEDS: Acetaminophen 325 MG Tablet 650 MG PO (03:47)
[2019-06-24 05:49] LABS: Absolute Lymphocyte Count 1.47 X10^3/uL (0.83-4.51); Absolute Neutrophil Count 4.2 X10^3/uL (2.0-7.7); Basophil# 0.01 X10^3/uL; Basophil% 0.2 % (0-1); Eosinophil# 0.04 X10^3/uL; Eosinophils% 0.6 % (0-5); Hematocrit 28.2 % (37-47); Hemoglobin 9.6 g/dL (12.0-15.0); Lymphocyte # 1.47 X10^3/ul (4.0); Lymphocyte % 23.9 % (19-41); Mean Corpuscular Hgb 30.1 pg (27.0-32.0); Mean Corpuscular Volume 88.4 fL (81-99); Mean Platelet Vol. 10.2 fl (6.2-12.0); Monocyte% 6.5 % (0-10); NRBC Flagged by Analyzer 0 % (0-5); Neutrophil # 4.19 X10^3/uL (2.7-7.7); Platelet Count 161 K/mm3 (150-450); RBC Distribution Width SD 42.4 fl (35.1-43.9); Red Blood Count 3.19 M/mm3 (4.2-5.4); White Blood Count 6.2 K/mm3 (4.4-11.0)
[2019-06-24 06:12] LABS: Anion Gap 7 (5-15); BUN 16 mg/dL (7-18); BUN/Creat Ratio 24.3 RATIO (10-20); Calcium,Total 8.8 mg/dL (8.5-10.1); Chloride 106 mmol/L (98-107); Creatinine, Serum 0.66 mg/dL (0.55-1.02); EST Glomerular Filtration Rate 94 mL/min (>60); Est Glom Filt Rate - Afr Amer 114 mL/min (>60); Estimated Creatinine Clearance 37.06 ml/min; Glucose 151 mg/dL (74-106); Magnesium 1.1 mg/dL (1.6-2.6); Potassium 3.2 mmol/L (3.5-5.1); Sodium Level 137 mmol/L (136-145)
[2019-06-24] MEDS: HYDROcodone Bitartrate/Apap 5/325 Tablet PO (06:22)
[2019-06-24 06:40] LABS: Bedside Glucose 140 mg/dL (70-110)
[2019-06-24 07:07] VITALS: O2SAT 92
[2019-06-24] MEDS: Fenofibrate 48 MG Tablet PO (07:31)
[2019-06-24] MEDS: Magnesium Oxide 400 MG Tablet PO ×2 (08:16→17:54)
[2019-06-24 09:22] VITALS: BP 109/37; PULSE 97; RESP 18; TEMP 37; O2SAT 96
--- NOTE | 2019-06-24 10:10 | DCINST_ITS ---
- Discharge Diagnoses Current Active Problems: Current Active and Chronic Problems COPD (chronic obstructive pulmonary disease) (Chronic) History of colon cancer (Chronic) Hyperlipidemia (Chronic) Migraine (Chronic) Status post coronary artery bypass graft (Chronic) Coronary artery disease (Chronic) Status post CABG and stents. Atrial fibrillation (Chronic) Hypertension (Chronic) UTI (urinary tract infection) (Acute) Acute delirium (Acute) You will use the following diet at home:: No restrictions Your food should be the consistency of: Regular Allergies/Adverse Reactions: Allergies Iodinated Contrast Media [CONTRASTS] Allergy (Mild, Verified 06/22/19 12:49) Unknown pt unknown of allergy reaction Medications to take at Discharge Cetirizine HCl 10 mg PO DAILY 06/22/19 Clopidogrel Bisulfate [Clopidogrel] 75 mg PO DAILY 06/22/19 Duloxetine Hcl [Cymbalta] 60 mg PO QHS 06/22/19 Ergocalciferol [Vitamin D] 50,000 unit PO MO 06/22/19 Fenofibrate 54 mg PO DAILY 06/22/19 Hydrocodone/Acetaminophen [Hydrocodone-Acetamin 5-325 mg] 1 tab PO BID 06/22/19 Isosorbide Mononitrate 10 mg PO BID 06/22/19 Metoprolol Succinate [Toprol Xl] 25 mg PO DAILY 06/22/19 Montelukast [Singulair] 10 mg PO QHS 06/22/19 Omeprazole 20 mg PO DAILY 06/22/19 Ropinirole HCl 2 mg PO BID 06/22/19 Topiramate 25 mg PO QHS 06/22/19 Trazodone HCl 100 mg PO QHS 06/22/19 Warfarin [Coumadin] 3 mg PO DAILY 06/22/19 Cephalexin [Keflex] 500 mg PO TID #15 cap 06/24/19 Magnesium Oxide [Mag-Ox 400] 400 mg PO BIDCM #30 tab 06/24/19 Potassium Chloride [K-Dur] 20 meq PO BIDCM #30 tab 06/24/19 The following prescriptions were given: Potassium Chloride [K-Dur] 20 meq PO BIDCM #30 tab [id number] Cephalexin [Keflex] 500 mg PO TID #15 cap Transmission Status: Pending to [facility] Magnesium Oxide [Mag-Ox 400] 400 mg PO BIDCM #30 tab Transmission Status: Pending to [id number] Primary Care Physician: Cyndi Gutierrez, DIRECTOR PROJECT MANAGEMENT-C [Primary Care Provider] - Please follow up with your Primary Care Physician in: in 5-7 days for repeat INR Test Results: Test results from this visit will be discussed in further detail at your follow- up appointment, if applicable. Proposed Discharge Date: 06/24/19
--- NOTE | 2019-06-24 10:12 | PCM.DC.SUM ---
Discharge Date and Diagnosis - Problem List Patient Problems: Active and Suspected Problems UTI (urinary tract infection) (Acute) Acute delirium (Acute) Date of Admission: 06/22/19 Date of Discharge: 06/24/19 - Primary Discharge Diagnosis Active and Suspected Problems UTI (urinary tract infection) (Acute) Acute delirium (Acute) - Secondary Discharge Diagnosis Chronic Problems COPD (chronic obstructive pulmonary disease) (Chronic) History of colon cancer (Chronic) Hyperlipidemia (Chronic) Migraine (Chronic) Status post coronary artery bypass graft (Chronic) Coronary artery disease (Chronic) Status post CABG and stents. Atrial fibrillation (Chronic) Hypertension (Chronic) Hospital Course and Treatment Summary of Care Provided: The patient is a 73 year old F admitted with altered mental status and assessment of sepsis secondary to acute cystitis made 1. Sepsis secondary to acute cystitis with E. coli patient was admitted to the regular nursing floor started on Rocephin. Urine cultures came back positive for E. coli patient was discharged home on Keflex 2. Acute kidney injury resolved with rehydration 3. Acute metabolic encephalopathy secondary to acute kidney injury resolved at the time of discharge 4. Hypokalemia corrected per protocol prescription written for potassium on discharge 5. Hypomagnesemia corrected per protocol 6. New onset diabetes mellitus type 2 hemoglobin A1c obtained on admission came back at 8. Patient was discharged on metformin 7. Coronary artery disease with previous CABG 8. Hypertension-blood pressure controlled, home medications continued with dose adjustment as needed 9. Paroxysmal atrial fibrillation patient was on Coumadin INR was subtherapeutic dose was increased however dose was decreased back to the original dose since she was discharged home on antibiotics. She was instructed to follow-up with her primary care provider for subsequent adjustment of her Coumadin dose 10. Dyslipidemia 11. Depression patient is on Cymbalta as well as trazodone 12. Seasonal allergies on Zyrtec and Singulair 13. Chronic migraine patient is on Topamax 14. DVT prophylaxis SC heparin Patient Problems: Active and Suspected Problems UTI (urinary tract infection) (Acute) Acute delirium (Acute) - Physical Exam General: Alert HEENT: Atraumatic Neck: Supple Lungs: Clear to auscultation Cardiovascular: Regular rate Neurological: Cranial nerves II-XII grossly intact Psych/Mental Status: Normal Affect Vital Signs Temp Pulse Resp BP Pulse Ox 98.6 F 97 18 109/37 L 96 06/24/19 09:22 06/24/19 09:22 06/24/19 09:22 06/24/19 09:22 06/24/19 09:22 Oxygen Flow Rate (L/min) 2 Oxygen Delivery Method Room Air Weight: 49.895 kg Body Mass Index (BMI) 21.4 Intake and Output for Last 24 Hours 06/22/19 06/23/19 06/24/19 23:59 23:59 23:59 Intake Total 1845 / 2445 3307 / 3607 600 / 600 Balance 1845 / 2445 3307 / 3607 600 / 600 Microbiology Past 72 Hours 06/22/19 14:30 Urine Culture - Final Urine Catheter - Catheter Presumptive E. coli Laboratory Tests Past 24 Hrs 06/24/19 06/24/19 05:25 05:25 WBC 6.2 RBC 3.19 L Hgb 9.6 L Hct 28.2 L MCV 88.4 MCH 30.1 MCHC 34.0 RDW Std Deviation 42.4 RDW Coeff of Saige 13.0 Plt Count 161 MPV 10.2 Immature Gran % (Auto) 0.800 Neut % (Auto) 68.0 Lymph % (Auto) 23.9 [place] % (Auto) 6.5 Eos % (Auto) 0.6 Baso % (Auto) 0.2 Absolute Neuts (auto) 4.2 Absolute Lymphs (auto) 1.47 Nucleated RBC % 0 Sodium 137 Potassium 3.2 L Chloride 106 Carbon Dioxide 24.0 Anion Gap 7 BUN 16 Creatinine 0.66 Estim Creat Clear Calc 37.06 Est GFR (MDRD) Af Amer 114 Est GFR (MDRD) Non-Af 94 BUN/Creatinine Ratio 24.3 H Glucose 151 H Calcium 8.8 Magnesium 1.1 L POC Glucose 06/24/19 06/23/19 06/23/19 06:31 23:47 17:22 POC Glucose 140 H 196 H 208 H 06/23/19 12:43 POC Glucose 151 H Discharge Diet: 1800 Calorie Control Diet Home Medications: Medications to take at Discharge Cetirizine HCl 10 mg PO DAILY 06/22/19 Clopidogrel Bisulfate [Clopidogrel] 75 mg PO DAILY 06/22/19 Duloxetine Hcl [Cymbalta] 60 mg PO QHS 06/22/19 Ergocalciferol [Vitamin D] 50,000 unit PO MO 06/22/19 Fenofibrate 54 mg PO DAILY 06/22/19 Hydrocodone/Acetaminophen [Hydrocodone-Acetamin 5-325 mg] 1 tab PO BID 06/22/19 Isosorbide Mononitrate 10 mg PO BID 06/22/19 Metoprolol Succinate [Toprol Xl] 25 mg PO DAILY 06/22/19 Montelukast [Singulair] 10 mg PO QHS 06/22/19 Omeprazole 20 mg PO DAILY 06/22/19 Ropinirole HCl 2 mg PO BID 06/22/19 Topiramate 25 mg PO QHS 06/22/19 Trazodone HCl 100 mg PO QHS 06/22/19 Warfarin [Coumadin] 3 mg PO DAILY 06/22/19 Cephalexin [Keflex] 500 mg PO TID #15 cap 06/24/19 Magnesium Oxide [Mag-Ox 400] 400 mg PO BIDCM #30 tab 06/24/19 Metformin HCl [Glucophage] 500 mg PO BID #60 tab 06/24/19 Potassium Chloride [K-Dur] 20 meq PO BIDCM #30 tab 06/24/19 Following Prescrptions Were Given to Patient: Metformin HCl [Glucophage] 500 mg PO BID #60 tab [facility] Potassium Chloride [K-Dur] 20 meq PO BIDCM #30 tab Transmission Status: Received by [facility] Cephalexin [Keflex] 500 mg PO TID #15 cap Transmission Status: [facility] by [facility] Magnesium Oxide [Mag-Ox 400] 400 mg PO BIDCM #30 tab Transmission Status: Received by [facility] Primary Care Physician: Cyndi Gutierrez NP-C [Primary Care Provider] - Please follow up with your Primary Care Physician in: in 5-7 days for repeat INR Disposition: Home Minutes spent on discharge:: 35 Patient Condition:: Stable Medical Necessity - Tobacco Use Smoking Status: Current every day smoker Tobacco Use: Cigarettes Meaningful Use Info Meaningful Use Diagnoses (Choose all that apply): None applicable Code Visit Inpatient E&M: 99913 Disch Hosp
[2019-06-24] MEDS: Ceftriaxone 1 GM/50 ML BAG IV (10:32)
[2019-06-24] MEDS: Isosorbide Mononitrate 20 MG Tablet 10 MG PO ×2 (10:33→21:51)
[2019-06-24 10:34] VITALS: PULSE 97
[2019-06-24] MEDS: Pantoprazole Sodium 20 MG Tablet PO (10:34)
[2019-06-24] MEDS: Metoprolol(XL)Succ 25 MG Tablet PO (10:34)
[2019-06-24] MEDS: Clopidogrel Bisulfate 75 MG Tablet PO (10:34)
[2019-06-24] MEDS: Loratadine 10 MG Tablet PO (10:34)
[2019-06-24] MEDS: Pramipexole Di-HCl 1 MG Tablet PO ×2 (10:34→21:52)
[2019-06-24] MEDS: Heparin Injection (Vial) 5,000 UNIT/ML VIAL 5000 UNIT SC ×2 (10:35→22:05)
[2019-06-24] MEDS: Insulin Lispro 100 UNIT/ML INSULN.PEN SC ×2 (11:30→21:49)
[2019-06-24 11:35] LABS: Bedside Glucose 232 mg/dL (70-110)
--- NOTE | 2019-06-24 12:30 | CASEMGMT ---
Addendum entered by Rick Verdugo 06/24/19 13:47: 1230: Terri returned call to this RN CM. Terri asking about discharge plan for pt and she was made aware that discharge orders are in. Terri voiced concerns about pt being discharged, stating that her mother is still confused and is not back to her baseline. Pt's RN, Argelia, not available to talk with pt at this time. Terri made aware RN would contact her shortly to discuss her concerns. Charge, Magalys, made aware Terri has concerns about discharge and given Terri's number. The following assessment questions/answers provided by Terri. PCP: ARTI Gutierrez [facility]erred [facility]acy: [facility] Insurance: [facility] Dual Comp HMO Prescription Benefit: Yes Living Will/HPOA: Terri states pt does not currently have LW/HCPOA and is interested in having her mom complete this paperwork. Terri informed that pt needs to be oriented in order for her to complete this paperwork. Terri made aware this can be completed as an 0ut-pt once pt is oriented and able to complete paperwork. Terri made aware that this RN CM will place Rolled Seat Trimmer Rac card with contact information to make an appt in pt's room for her to grain picker when she comes in. Terri voices appreciation. LNOK: Living Arrangements: Lives in a 2-bedroom lower-level apt with her of home that her daughter, Terri, lives in upstairs. Has a glide chair on the steps that is available if needed. Terri states that up until a few days prior to hospitalization that pt was independent w/ADL's. Terri states she has been assisting pt with ADL's since the confusion started. Transportation: Terri provides transportation or they use [place] for transportation needs at times. DME: has the following DME: tub bench/shower chair, rails/grab bars, hand held shower, Terri states that pt has O2 @ 2-3 L/M @ HS. Has concentrator only. Terri thinks this is thru [employer] but she is not sure. She states that [facility] set this up for her. She states pt also has a walker available but does not use. Pt states no need for further DME at this time. HHC/SNF: No history of SNF, but has had HHC in the past when pt lived in [place]. Terri does not remember name of the agency. Terri states she wishes for pt to return home once she is medically ready and that she would like [facility] for pt. She states she has had [facility] in the past and states would like them again if in network. She denies having preference of any other agency [facility], stating as long as it is in network. Call placed to Alicia @ [facility] and referral made. Awaiting return call to determine if they are able to accept pt. Terri states pt has a CM through [facility] and that they have been trying to get aide services for pt but have not been successful. Asia ZIMMER, made aware pt has CM through [facility]. CM to follow for further discharge planning/needs. PLAN: Home with [facility] and family support. Stephen BYRNES RN, CM Original Note: RN SARABJIT PRODUCT SAFETY COORDINATOR CM to room to meet with patient for initial transition planning/care coordination assessment. RN SARABJIT introduced self and role at [facility]. Pt sitting up in recliner chair. Pt remains w/some confusion noted. Pt gave permission for JESUS WHIPPLE to call her daughter, Terri, to talk with her about discharge planning. Call placed to Terri. No answer. Message left for Terri to return call. Phone number to this JESUS WHIPPLE provided. Stephen BYRNES RN, CM
--- NOTE | 2019-06-24 12:36 | PCM.DC ---
- Discharge Diagnoses Current Active Problems: Current Active and Chronic Problems COPD (chronic obstructive pulmonary disease) (Chronic) History of colon cancer (Chronic) Hyperlipidemia (Chronic) Migraine (Chronic) Status post coronary artery bypass graft (Chronic) Coronary artery disease (Chronic) Status post CABG and stents. Atrial fibrillation (Chronic) Hypertension (Chronic) UTI (urinary tract infection) (Acute) Acute delirium (Acute) Allergies/Adverse Reactions: Allergies Iodinated Contrast Media [CONTRASTS] Allergy (Mild, Verified 06/22/19 12:49) Unknown pt unknown of allergy reaction Medications to take at Discharge Cetirizine HCl 10 mg PO DAILY 06/22/19 Clopidogrel Bisulfate [Clopidogrel] 75 mg PO DAILY 06/22/19 Duloxetine Hcl [Cymbalta] 60 mg PO QHS 06/22/19 Ergocalciferol [Vitamin D] 50,000 unit PO MO 06/22/19 Fenofibrate 54 mg PO DAILY 06/22/19 Hydrocodone/Acetaminophen [Hydrocodone-Acetamin 5-325 mg] 1 tab PO BID 06/22/19 Isosorbide Mononitrate 10 mg PO BID 06/22/19 Metoprolol Succinate [Toprol Xl] 25 mg PO DAILY 06/22/19 Montelukast [Singulair] 10 mg PO QHS 06/22/19 Omeprazole 20 mg PO DAILY 06/22/19 Ropinirole HCl 2 mg PO BID 06/22/19 Topiramate 25 mg PO QHS 06/22/19 Trazodone HCl 100 mg PO QHS 06/22/19 Warfarin [Coumadin] 3 mg PO DAILY 06/22/19 Cephalexin [Keflex] 500 mg PO TID #15 cap 06/24/19 Magnesium Oxide [Mag-Ox 400] 400 mg PO BIDCM #30 tab 06/24/19 Metformin HCl [Glucophage] 500 mg PO BID #60 tab 06/24/19 Potassium Chloride [K-Dur] 20 meq PO BIDCM #30 tab 06/24/19 The following prescriptions were given: Metformin HCl [Glucophage] 500 mg PO BID #60 tab Transmission Status: Pending to [id number] Potassium Chloride [K-Dur] 20 meq PO BIDCM #30 tab Transmission Status: Received by [facility] Cephalexin [Keflex] 500 mg PO TID #15 cap Transmission Status: Received by [facility] Magnesium Oxide [Mag-Ox 400] 400 mg PO BIDCM #30 tab Transmission Status: Received by [id number] Primary Care Physician: Cyndi Gutierrez, PEDIATRIC OCCUPATIONAL THERAPIST-C [Primary Care Provider] - Please follow up with your Primary Care Physician in: in 5-7 days for repeat INR Test Results: Test results from this visit will be discussed in further detail at your follow-up appointment, if applicable. Proposed Discharge Date: 06/24/19
--- NOTE | 2019-06-24 12:52 | PCM.PN.HOSP ---
Patient Problems: Active and Suspected Problems UTI (urinary tract infection) (Acute) Acute delirium (Acute) Vitals/I&O's: Vital Signs Temp Pulse Resp BP Pulse Ox 98.6 F 97 18 109/37 L 96 06/24/19 09:22 06/24/19 10:34 06/24/19 09:22 06/24/19 09:22 06/24/19 09:22 Oxygen Flow Rate (L/min) 2 Oxygen Delivery Method Room Air Weight: 49.895 kg Body Mass Index (BMI) 21.4 Intake and Output for Last 24 Hours 06/22/19 06/23/19 06/24/19 23:59 23:59 23:59 Intake Total 1845 / 2445 3307 / 3607 804 / 804 Balance 1845 / 2445 3307 / 3607 804 / 804 Microbiology Past 72 Hours 06/22/19 14:30 Urine Catheter - Catheter Urine Culture - Final Presumptive E. coli Laboratory Results 06/23/19 17:22: POC Glucose 208 H 06/23/19 23:47: POC Glucose 196 H 06/24/19 05:25: WBC 6.2, RBC 3.19 L, Hgb 9.6 L, Hct 28.2 L, MCV 88.4, MCH 30.1, MCHC 34.0, RDW Std Deviation 42.4, RDW Coeff of Saige 13.0, Plt Count 161, MPV 10.2, Immature Gran % (Auto) 0.800, Neut % (Auto) 68.0, Lymph % (Auto) 23.9, [place] % (Auto) 6.5, Eos % (Auto) 0.6, Baso % (Auto) 0.2, Absolute Neuts (auto) 4.2, Absolute Lymphs (auto) 1.47, Nucleated RBC % 0 06/24/19 05:25: Sodium 137, Potassium 3.2 L, Chloride 106, Carbon Dioxide 24.0, Anion Gap 7, BUN 16, Creatinine 0.66, Estim Creat Clear Calc 37.06, Est GFR (MDRD) Af Amer 114, Est GFR (MDRD) Non-Af 94, BUN/Creatinine Ratio 24.3 H, Glucose 151 H, Calcium 8.8, Magnesium 1.1 L 06/24/19 06:31: POC Glucose 140 H 06/24/19 11:27: POC Glucose 232 H Current Medications Acetaminophen (Tylenol) 650 mg PO Q6H PRN PRN PRN Reason: Mild Pain (1-3)/Temp > 100.7 F Last Admin: 06/24/19 03:47 Dose: 650 mg Documented by: Hydrocodone Bitart/Acetaminophen ([place] 5mg-325mg) 1 tablet PO TID [facility] Last Admin: 06/24/19 06:22 Dose: 1 tablet Documented by: Albuterol Sulfate (Ventolin Aerosols) 2.5 mg INHALATION Q4H PRN PRN PRN Reason: Shortness of breath, wheezing Clopidogrel Bisulfate (Plavix) 75 mg PO DAILY [facility] Last Admin: 06/24/19 10:34 Dose: 75 mg Documented by: Duloxetine HCl (Cymbalta) 60 mg PO QHS [facility] Last Admin: 06/23/19 22:09 Dose: 60 mg Documented by: [facility] (Tricor) [facility] Last Admin: 06/24/19 07:31 Dose: 48 mg Documented by: Heparin Sodium (Porcine) (Heparin Na) 5,000 unit SC Q12 [facility] Last Admin: 06/24/19 10:35 Dose: 5,000 unit Documented by: Sodium Chloride () 1,000 mls @ 50 mls/hr IV .Q20H [facility] Last Admin: 06/23/19 22:30 Dose: 50 mls/hr Documented by: Ceftriaxone Sodium (Rocephin) 1 gm in 50 mls @ 100 mls/hr IV Q24 [facility] Last Admin: 06/24/19 10:32 Dose: 100 mls/hr Documented by: Insulin Human Lispro (Humalog Kwikpen (Bkc)) 0 unit SC ACHS [facility]; Protocol Last Admin: 06/24/19 11:30 Dose: 3 u Documented by: Isosorbide Mononitrate (Monoket) 10 mg PO BID [facility] Last Admin: 06/24/19 10:33 Dose: 10 mg Documented by: Loratadine (Claritin) 10 mg PO DAILY [facility] Last Admin: 06/24/19 10:34 Dose: 10 mg Documented by: Magnesium Oxide (Mag-Ox 400) [facility] Last Admin: 06/24/19 08:16 Dose: 400 mg Documented by: Metoprolol Succinate (Toprol Xl (Beta Jay)) 25 mg PO DAILY [facility] Last Admin: 06/24/19 10:34 Dose: 25 mg Documented by: Montelukast Sodium (Singulair) 10 mg PO QHS [facility] Last Admin: 06/23/19 22:10 Dose: 10 mg Documented by: Ondansetron HCl (Zofran) 4 mg IV Q8H PRN PRN PRN Reason: NAUSEA/VOMITING Pantoprazole Sodium (Protonix) 20 mg PO DAILY [facility] Last Admin: 06/24/19 10:34 Dose: 20 mg Documented by: Potassium Chloride (K-Dur) [facility] Last Admin: 06/24/19 08:20 Dose: 20 meq Documented by: Pramipexole Dihydrochloride (Mirapex) 1 mg PO BID [facility] Last Admin: 06/24/19 10:34 Dose: 1 mg Documented by: Sodium Chloride () 10 - 40 ml IV UD PRN PRN Reason: SALINE FLUSH Topiramate (Topamax) 25 mg PO QHS [facility] Last Admin: 06/23/19 22:23 Dose: 25 mg Documented by: Trazodone HCl (Desyrel) 100 mg PO QHS [facility] Last Admin: 06/23/19 22:22 Dose: 100 mg Documented by: Warfarin Sodium (Coumadin (Pbkc)) 5 mg PO DAILY@1700 [facility] Last Admin: 06/23/19 17:33 Dose: 5 mg Documented by: Medical Necessity - Tobacco Use Smoking Status: Current every day smoker Tobacco Use: Cigarettes Assessment/Plan All Active Problems UTI (urinary tract infection) (Acute) Acute delirium (Acute)
--- NOTE | 2019-06-24 14:19 | CASEMGMT ---
Social Work Per JESUS CabreraCM, Pt is current with [facility] and Yoana Hernandez is her CM. SW left VM with Yoana informing of admission to hospital on 06/22 and requesting information on services pt has in the home. Will await return call. TRAY Flores
--- NOTE | 2019-06-24 14:26 | PCM.CONS.GEN ---
Problem List (1) Confusion Status: Acute (2) Headache Status: Acute Reason for Consult Date of Consultation: 06/24/19 Reason for Consultation: Acute confusion, headache History of Present Illness: The patient is a 73 year old F with PMH HTN, HLD, A. fib on Coumadin, CAD status post CABG, migraines, history of colon cancer admitted with confusion and headache. History is obtained from the patient and medical records and documentation. At present patient is awake and alert as well as oriented to person and place but is not oriented to time. She does complain of headache, frontal, per patient's headache for the past few days, photophobia, phonophobia and denies any visual disturbances or vision loss, nausea. Per nurse taking care of the patient the patient lives with her and at baseline is very active, there is no documented frequent falls, does not use cane or walker to ambulate or and does not drive. Per documentation patient was noticed to have confusion about 2 days ago, at present patient denies any focal motor weakness, sensory loss, speech disturbances, visual disturbances, vision loss, temporal tenderness, jaw claudication, or dizziness. He had an admission did not report to show anything acute, labs UA was cloudy nitrite negative, LE 500, WBC 50-100 and bacteria +4, culture reported to show E. coli. Creatinine 1.31 on admission, AST/ALT?07/08 WBC 7.5. Patient is on Coumadin for A. fib. No documentation of fever per nursing staff. Denies any neck stiffness. Per documentation patient is on Topamax 25 mg p.o. nightly for migraines and pramipexole for RLS. Past Medical History Past Medical History (Chronic Problems): Chronic Problems COPD (chronic obstructive pulmonary disease) (Chronic) History of colon cancer (Chronic) Hyperlipidemia (Chronic) Migraine (Chronic) Status post coronary artery bypass graft (Chronic) Coronary artery disease (Chronic) Status post CABG and stents. Atrial fibrillation (Chronic) Hypertension (Chronic) Allergies Iodinated Contrast Media [CONTRASTS] Allergy (Mild, Verified 06/22/19 12:49) Unknown pt unknown of allergy reaction Home Medications: Ambulatory Orders Medication Instructions Recorded Cetirizine HCl 10 mg PO DAILY 06/22/19 Clopidogrel Bisulfate [Clopidogrel] 75 mg PO DAILY 06/22/19 Duloxetine Hcl [Cymbalta] 60 mg PO QHS 06/22/19 Ergocalciferol [Vitamin D] 50,000 unit PO MO 06/22/19 Fenofibrate 54 mg PO DAILY 06/22/19 Hydrocodone/Acetaminophen 1 tab PO BID 06/22/19 [Hydrocodone-Acetamin 5-325 mg] Isosorbide Mononitrate 10 mg PO BID 06/22/19 Metoprolol Succinate [Toprol Xl] 25 mg PO DAILY 06/22/19 Montelukast [Singulair] 10 mg PO QHS 06/22/19 Omeprazole 20 mg PO DAILY 06/22/19 Ropinirole HCl 2 mg PO BID 06/22/19 Topiramate 25 mg PO QHS 06/22/19 Trazodone HCl 100 mg PO QHS 06/22/19 Warfarin [Coumadin] 3 mg PO DAILY 06/22/19 Cephalexin [Keflex] 500 mg PO TID #15 cap 06/24/19 Magnesium Oxide [Mag-Ox 400] 400 mg PO BIDCM #30 tab 06/24/19 Metformin HCl [Glucophage] 500 mg PO BID #60 tab 06/24/19 Potassium Chloride [K-Dur] 20 meq PO BIDCM #30 tab 06/24/19 Surgical History: cholecystectomy, colectomy, coronary bypass surgery Psychiatric History: Depression Lives: Spouse/ Significant Other Smoking Status: Current every day smoker Tobacco Use: Cigarettes Alcohol: None Drugs: None - *Family History Maternal History Items: No pertinent history Paternal History Items: No pertinent history Review of Systems Constitutional: Reports: - - Complete ROS negative except as documented in HPI Patient Problems: Active and Suspected Problems Confusion (Acute) Headache (Acute) UTI (urinary tract infection) (Acute) Acute delirium (Acute) - Physical Exam General: - - Conscious awake, AOA x2 HEENT: Normocephalic Neck: Supple Lungs: Normal air movement Cardiovascular: Normal S1, Normal S2 Abdomen: Bowel Sounds Present Extremities: No cyanosis Neurological: - - Conscious, awake, UA x2, cranial nerves II through XII grossly intact, power 5 x 5 both upper and lower extremity's, no sensory loss, no cerebellar signs, gait deferred, reflexes + B/L B/S/T/K/A, no NR, fundus not visualized Psych/Mental Status: Normal Affect Vital Signs Temp Pulse Resp BP Pulse Ox 98.6 F 97 18 109/37 L 96 06/24/19 09:22 06/24/19 10:34 06/24/19 09:22 06/24/19 09:22 06/24/19 09:22 Oxygen Flow Rate (L/min) 2 Oxygen Delivery Method Room Air Weight: 49.895 kg Body Mass Index (BMI) 21.4 Intake and Output for Last 24 Hours 06/22/19 06/23/19 06/24/19 23:59 23:59 23:59 Intake Total 1845 / 2445 3307 / 3607 2053 Balance 1845 / 2445 3307 / 3607 2053 Microbiology Past 72 Hours 06/22/19 14:30 Urine Culture - Final Urine Catheter - Catheter Presumptive E. coli Laboratory Tests Past 24 Hrs 06/24/19 06/24/19 05:25 05:25 WBC 6.2 RBC 3.19 L Hgb 9.6 L Hct 28.2 L MCV 88.4 MCH 30.1 MCHC 34.0 RDW Std Deviation 42.4 RDW Coeff of Saige 13.0 Plt Count 161 MPV 10.2 Immature Gran % (Auto) 0.800 Neut % (Auto) 68.0 Lymph % (Auto) 23.9 [place] % (Auto) 6.5 Eos % (Auto) 0.6 Baso % (Auto) 0.2 Absolute Neuts (auto) 4.2 Absolute Lymphs (auto) 1.47 Nucleated RBC % 0 Sodium 137 Potassium 3.2 L Chloride 106 Carbon Dioxide 24.0 Anion Gap 7 BUN 16 Creatinine 0.66 Estim Creat Clear Calc 37.06 Est GFR (MDRD) Af Amer 114 Est GFR (MDRD) Non-Af 94 BUN/Creatinine Ratio 24.3 H Glucose 151 H Calcium 8.8 Magnesium 1.1 L POC Glucose 06/24/19 06/24/19 06/23/19 11:27 06:31 23:47 POC Glucose 232 H 140 H 196 H 06/23/19 17:22 POC Glucose 208 H Assessment/Plan All Active Problems Confusion (Acute) Headache (Acute) UTI (urinary tract infection) (Acute) Acute delirium (Acute) The patient is a 73 year old F with PMH HTN, HLD, A. fib on Coumadin, CAD status post CABG, migraines, history of colon cancer admitted with confusion and headache. History is obtained from the patient and medical records and documentation. At present patient is awake and alert as well as oriented to person and place but is not oriented to time. She does complain of headache, frontal, per patient's headache for the past few days, photophobia, phonophobia and denies any visual disturbances or vision loss, nausea. Per nurse taking care of the patient the patient lives with her and at baseline is very active, there is no documented frequent falls, does not use cane or walker to ambulate or and does not drive. Per documentation patient was noticed to have confusion about 2 days ago, at present patient denies any focal motor weakness, sensory loss, speech disturbances, visual disturbances, vision loss, temporal tenderness, jaw claudication, or dizziness. He had an admission did not report to show anything acute, labs UA was cloudy nitrite negative, LE 500, WBC 50-100 and bacteria +4, culture reported to show E. coli. Creatinine 1.31 on admission, AST/ALT?07/08 WBC 7.5. Patient is on Coumadin for A. fib. No documentation of fever per nursing staff. Denies any neck stiffness. Per documentation patient is on Topamax 25 mg p.o. nightly for migraines and pramipexole for RLS. Impression Metabolic encephalopathy Headache?possible status migrainosus RLS Plan ?Check MRI brain without contrast ?Trial of Depakote 500 mg IV every 8 hourly for 24 to 48 hours then stop ?Received magnesium sulfate IV this morning ?Toradol 15 mg IV every 6 hourly as needed headache for 24 to 48 hours if no contraindication and then stop ?On Coumadin and Plavix at baseline. Increased bleeding risks. Defer to PCP/hospitalist/cardiology for further evaluation and management. ?Check ESR, ammonia ?Labs reviewed ?Avoid narcotics ?On Topamax 25 mg p.o. nightly for migraine headaches. May increase to Topamax 25 mg p.o. twice daily. ?PT/OT ?GI/DVT prophylaxis ?Fall precautions ?Further medical management per hospitalist team ?Please call with questions if any ?Follow-up with neurology as outpatient in 6 weeks ?Thank you for allowing us to participate in patient's current management This note has been generated using [employer] dictation software. It may contain incorrect words, spellings and punctuation that were not noted in the review of the note prior to signing. Code Visit Inpatient E&M: 08310 Init Hosp L3
--- NOTE | 2019-06-24 14:34 | MRI_ITS ---
STUDY: MRI BRAIN WITHOUT CONTRAST REASON FOR EXAM: Female, 73 years old. Headaches and confusion TECHNIQUE: Standardized multiplanar fat and water weighted pulse sequences were obtained. COMPARISON: CT of the brain on June 22, 2019 FINDINGS: Mild atrophy and moderate periventricular white matter ischemic change without mass effect or restricted diffusion. 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 Normal thalami. There is no extra-axial fluid accumulation. Normal flow voids within the major intracranial circulation suggesting patency by spin echo criteria. Normal sella turcica, pituitary gland, infundibular stalk, optic chiasm and hypothalamus. Normal tectal plate and pineal gland. Normal midbrain, ligia and medulla. Normal basal cisterns. Normal bilateral temporal bones. Normal bilateral internal auditory canals. Postsurgical changes of the orbits.. Normal visualized paranasal sinuses. There is postsurgical change status post left frontal parietal craniotomy. Normal visualized soft tissue structures. Normal visualized upper cervical spine. 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 Small old left cerebellar infarct Electronically Signed: Carlos Louis MD at 19:29 EDT , Service support ,
--- NOTE | 2019-06-24 14:59 | PCM.PN.HOSP ---
Patient Problems: Active and Suspected Problems Confusion (Acute) Headache (Acute) UTI (urinary tract infection) (Acute) Acute delirium (Acute) Subjective: CC acute cystitis The patient is a 73 year old F admitted with altered mental status and assessment of sepsis secondary to acute cystitis made. Patient started on Rocephin and admitted to regular nursing floor for further management. Plan was for patient to be discharged home however she did develop significant headache consistent with acute exacerbation of her migraine discharge was discontinued consultation instead placed to neurology Objective: GENERAL: cooperative HEENT: Atraumatic; EYES; Anicteric, Normal Conjunctiva NECK; supple, normal thyroid, RESPIRATORY: Diminished to auscultation bilaterally, CARDIOVASCULAR: Regular S1 S2, GI: soft, non-tender, normoactive bowel sounds, : No Renal angle tenderness; EXTREMITIES: No edema, no clubbing, MUSCULOSKELETAL: No Joint Tenderness; NEURO: Awake; no lateralizing signs. SKIN: No Rash PSYCH; Flat affect Vitals/I&O's: Vital Signs Temp Pulse Resp BP Pulse Ox 98.6 F 97 18 109/37 L 96 06/24/19 09:22 06/24/19 10:34 06/24/19 09:22 06/24/19 09:22 06/24/19 09:22 Oxygen Flow Rate (L/min) 2 Oxygen Delivery Method Room Air Weight: 49.895 kg Body Mass Index (BMI) 21.4 Intake and Output for Last 24 Hours 06/22/19 06/23/19 06/24/19 23:59 23:59 23:59 Intake Total 1845 / 2445 3307 / 3607 2154 / 2154 Balance 1845 / 2445 3307 / 3607 2154 / 2154 Microbiology Past 72 Hours 06/22/19 14:30 Urine Catheter - Catheter Urine Culture - Final Presumptive E. coli Laboratory Results 06/23/19 17:22: POC Glucose 208 H 06/23/19 23:47: POC Glucose 196 H 06/24/19 05:25: WBC 6.2, RBC 3.19 L, Hgb 9.6 L, Hct 28.2 L, MCV 88.4, MCH 30.1, MCHC 34.0, RDW Std Deviation 42.4, RDW Coeff of Saige 13.0, Plt Count 161, MPV 10.2, Immature Gran % (Auto) 0.800, Neut % (Auto) 68.0, Lymph % (Auto) 23.9, [place] % (Auto) 6.5, Eos % (Auto) 0.6, Baso % (Auto) 0.2, Absolute Neuts (auto) 4.2, Absolute Lymphs (auto) 1.47, Nucleated RBC % 0 06/24/19 05:25: Sodium 137, Potassium 3.2 L, Chloride 106, Carbon Dioxide 24.0, Anion Gap 7, BUN 16, Creatinine 0.66, Estim Creat Clear Calc 37.06, Est GFR (MDRD) Af Amer 114, Est GFR (MDRD) Non-Af 94, BUN/Creatinine Ratio 24.3 H, Glucose 151 H, Calcium 8.8, Magnesium 1.1 L 06/24/19 05:25: ESR Pending 06/24/19 06:31: POC Glucose 140 H 06/24/19 11:27: POC Glucose 232 H Current Medications Acetaminophen (Tylenol) 650 mg PO Q6H PRN PRN PRN Reason: Mild Pain (1-3)/Temp > 100.7 F Last Admin: 06/24/19 03:47 Dose: 650 mg Documented by: Albuterol Sulfate (Ventolin Aerosols) 2.5 mg INHALATION Q4H PRN PRN PRN Reason: Shortness of breath, wheezing Clopidogrel Bisulfate (Plavix) 75 mg PO DAILY [facility] Last Admin: 06/24/19 10:34 Dose: 75 mg Documented by: Duloxetine HCl (Cymbalta) 60 mg PO QHS [facility] Last Admin: 06/23/19 22:09 Dose: 60 mg Documented by: [facility]) [facility] Last Admin: 06/24/19 07:31 Dose: 48 mg Documented by: Heparin Sodium (Porcine) (Heparin Na) 5,000 unit SC Q12 [facility] Last Admin: 06/24/19 10:35 Dose: 5,000 unit Documented by: Sodium Chloride () 1,000 mls @ 50 mls/hr IV .Q20H [facility] Last Admin: 06/23/19 22:30 Dose: 50 mls/hr Documented by: Ceftriaxone Sodium (Rocephin) 1 gm in 50 mls @ 100 mls/hr IV Q24 [facility] Last Admin: 06/24/19 10:32 Dose: 100 mls/hr Documented by: Valproic Acid 500 mg/ Dextrose 55 mls @ 50 mls/hr IV Q8 [facility] Stop: 06/26/19 15:00 Insulin Human Lispro (Humalog Kwikpen (Bkc)) 0 unit SC [facility]; Protocol Last Admin: 06/24/19 11:30 Dose: 3 u Documented by: Isosorbide Mononitrate (Monoket) 10 mg PO BID [facility] Last Admin: 06/24/19 10:33 Dose: 10 mg Documented by: Loratadine (Claritin) 10 mg PO DAILY [facility] Last Admin: 06/24/19 10:34 Dose: 10 mg Documented by: Magnesium Oxide (Mag-Ox 400) [facility] Last Admin: 06/24/19 08:16 Dose: 400 mg Documented by: Metoprolol Succinate (Toprol Xl (Beta Jay)) 25 mg PO DAILY [facility] Last Admin: 06/24/19 10:34 Dose: 25 mg Documented by: [facility] Last Admin: 06/23/19 22:10 Dose: 10 mg Documented by: Ondansetron HCl (Zofran) 4 mg IV Q8H PRN PRN PRN Reason: NAUSEA/VOMITING Pantoprazole Sodium (Protonix) 20 mg PO DAILY [facility] Last Admin: 06/24/19 10:34 Dose: 20 mg Documented by: Potassium Chloride (K-Dur) [facility] Last Admin: 06/24/19 08:20 Dose: 20 meq Documented by: Pramipexole Dihydrochloride (Mirapex) 1 mg PO BID [facility] Last Admin: 06/24/19 10:34 Dose: 1 mg Documented by: Sodium Chloride () 10 - 40 ml IV UD PRN PRN Reason: SALINE FLUSH Topir[facility] ([facility]) [facility] Last Admin: 06/23/19 22:23 Dose: 25 mg Documented by: Trazodone HCl (Desyrel) 100 mg PO QHS [facility] Last Admin: 06/23/19 22:22 Dose: 100 mg Documented by: Warfarin Sodium (Coumadin (Pbkc)) 5 mg PO DAILY@1700 [facility] Last Admin: 06/23/19 17:33 Dose: 5 mg Documented by: Medical Necessity - Tobacco Use Smoking Status: Current every day smoker Tobacco Use: Cigarettes Assessment/Plan All Active Problems Confusion (Acute) Headache (Acute) UTI (urinary tract infection) (Acute) Acute delirium (Acute) The patient is a 73 year old F admitted with altered mental status and assessment of sepsis secondary to acute cystitis made 1. Sepsis secondary to acute cystitis with E. coli patient was admitted to the regular nursing floor started on Rocephin. Urine cultures came back positive for E. coli patient was discharged home on Keflex 2. Acute kidney injury resolved with rehydration 3. Acute metabolic encephalopathy secondary to acute kidney injury resolved at the time of discharge 4. Hypokalemia corrected per protocol prescription written for potassium on discharge 5. Hypomagnesemia corrected per protocol 6. New onset diabetes mellitus type 2 hemoglobin A1c obtained on admission came back at 8. Plan is for patient to be on metformin 7. Migraine with acute exacerbation patient discharge was discontinued as a result. Consult was placed to neurology Case discussed with Dr. Vazquez his note and recommendations reviewed 8. Hypertension-blood pressure controlled, home medications continued with dose adjustment as needed 9. Paroxysmal atrial fibrillation patient was on Coumadin INR was subtherapeutic dose was increased 10. Dyslipidemia 11. Depression patient is on Cymbalta as well as trazodone 12. Seasonal allergies on Zyrtec and Singulair 13. Coronary artery disease with previous CABG 14. DVT prophylaxis SC heparin Code Visit Inpatient E&M: 49221 Subs Hosp L2
[2019-06-24 15:22] LABS: Erythrocyte Sedimentation Rate 49 mm/hr (0-30)
--- NOTE | 2019-06-24 15:50 | CASEMGMT ---
Addendum entered by Rick Verdugo 06/24/19 16:25: Spoke with Vicki @ [facility]. They did receive the referral packet but review has not been completed at this time. Still awaiting if they are able to accept pt into their services. Original Note: JESUS WHIPPLE NOTE: Call placed to [facility] agency. They stated they are in-network with [facility] and do service the [facility]. Referral faxed. Awaiting acceptance. [facility]: PH: [phone] Stephen BYRNES RN, CM
[2019-06-24 16:14] VITALS: BP 114/42; PULSE 88; RESP 18; TEMP 36.5; O2SAT 98
[2019-06-24 16:50] LABS: Bedside Glucose 136 mg/dL (70-110)
[2019-06-24] MEDS: DULoxetine Hcl 60 MG Capsule PO (21:48)
[2019-06-24] MEDS: traZODone 100 MG Tablet PO (21:49)
[2019-06-24] MEDS: Montelukast 10 MG Tablet PO (21:50)
[2019-06-24] MEDS: Topiramate 25 MG Tablet PO (21:51)
[2019-06-24 21:57] VITALS: BP 98/34; PULSE 82; RESP 24; TEMP 37.3; O2SAT 99
[2019-06-24] MEDS: 0.9% Normal Saline 1,000 ML 50 ML IV (22:07)
[2019-06-24 22:45] LABS: Bedside Glucose 217 mg/dL (70-110)
[2019-06-25] VITALS (7 sets, daily range): BP systolic 105–130; BP diastolic 42–80; PULSE 68–84; RESP 10–20; TEMP 36.5–37.3; O2SAT 94–99
[2019-06-25] MEDS: Acetaminophen 325 MG Tablet 650 MG PO ×3 (02:10→20:20)
[2019-06-25 06:56] LABS: Bedside Glucose 161 mg/dL (70-110)
[2019-06-25] MEDS: Insulin Lispro 100 UNIT/ML INSULN.PEN SC ×3 (07:03→16:25)
--- NOTE | 2019-06-25 07:18 | PN_ITS ---
Patient Problems: Active and Suspected Problems Confusion (Acute) Headache (Acute) UTI (urinary tract infection) (Acute) Acute delirium (Acute) Subjective: CC: Acute cystitis Patient seen, head discharge the day prior was discontinued following development of severe headache and assessment of status migrainosus was made patient started on Depakote by neurology patient underwent MRI which did not reveal any acute infarct or pathology. Objective: GENERAL: cooperative HEENT: Atraumatic; EYES; Anicteric, Normal Conjunctiva NECK; supple, normal thyroid, RESPIRATORY: Diminished to auscultation bilaterally, CARDIOVASCULAR: Regular S1 S2, GI: soft, non-tender, normoactive bowel sounds, : No Renal angle tenderness; EXTREMITIES: No edema, no clubbing, MUSCULOSKELETAL: No Joint Tenderness; NEURO: Awake; no lateralizing signs. SKIN: No Rash PSYCH; Flat affect Vitals/I&O's: Vital Signs Temp Pulse Resp BP Pulse Ox 99.1 F 77 20 H 105/42 L 96 06/25/19 02:12 06/25/19 02:12 06/25/19 02:12 06/25/19 02:12 06/25/19 02:12 Oxygen Flow Rate (L/min) 2 Oxygen Delivery Method Room Air Weight: 49.895 kg Body Mass Index (BMI) 21.4 Intake and Output for Last 24 Hours 06/23/19 06/24/19 06/25/19 23:59 23:59 23:59 Intake Total 3307 / 3607 4533.17 / 4721.50 654.16 / 654.16 Balance 3307 / 3607 4533.17 / 4721.50 654.16 / 654.16 Microbiology Past 72 Hours 06/22/19 14:30 Urine Catheter - Catheter Urine Culture - Final Presumptive E. coli Laboratory Results 06/24/19 05:25: ESR 49 H 06/24/19 11:27: POC Glucose 232 H 06/24/19 16:44: POC Glucose 136 H 06/24/19 21:47: POC Glucose 217 H 06/25/19 06:49: POC Glucose 161 H Current Medications Acetaminophen (Tylenol) 650 mg PO Q6H PRN PRN PRN Reason: Mild Pain (1-3)/Temp > 100.7 F Last Admin: 06/25/19 02:10 Dose: 650 mg Documented by: Albuterol Sulfate (Ventolin Aerosols) 2.5 mg INHALATION Q4H PRN PRN PRN Reason: Shortness of breath, wheezing Clopidogrel Bisulfate (Plavix) 75 mg PO DAILY [facility] Last Admin: 06/24/19 10:34 Dose: 75 mg Documented by: Duloxetine HCl (Cymbalta) 60 mg PO QHS [facility] Last Admin: 06/24/19 21:48 Dose: 60 mg Documented by: [facility] (Tricor) [facility] Last Admin: 06/24/19 07:31 Dose: 48 mg Documented by: Heparin Sodium (Porcine) (Heparin Na) 5,000 unit SC Q12 [facility] Last Admin: 06/24/19 22:05 Dose: 5,000 unit Documented by: Sodium Chloride () 1,000 mls @ 50 mls/hr IV .Q20H [facility] Last Infusion: 06/25/19 06:19 Dose: 0 mls/hr Documented by: Ceftriaxone Sodium (Rocephin) 1 gm in 50 mls @ 100 mls/hr IV Q24 [facility] Last Infusion: 06/24/19 11:05 Dose: Infused Documented by: Valproic Acid 500 mg/ Dextrose 55 mls @ 50 mls/hr IV Q8 [facility] Stop: 06/26/19 15:00 Last Admin: 06/25/19 06:19 Dose: 50 mls/hr Documented by: Insulin Human Lispro (Humalog Kwikpen (Bkc)) 0 unit SC ACHS [facility]; Protocol Last Admin: 06/25/19 07:03 Dose: 1 u Documented by: Isosorbide Mononitrate (Monoket) 10 mg PO BID [facility] Last Admin: 06/24/19 21:51 Dose: 10 mg Documented by: Loratadine (Claritin) 10 mg PO DAILY [facility] Last Admin: 06/24/19 10:34 Dose: 10 mg Documented by: Magnesium Oxide (Mag-Ox 400) [facility] Last Admin: 06/24/19 17:54 Dose: 400 mg Documented by: Metoprolol Succinate (Toprol Xl (Beta Jay)) 25 mg PO DAILY [facility] Last Admin: 06/24/19 10:34 Dose: 25 mg Documented by: Montelukast Sodium (Singulair) 10 mg PO QHS [facility] Last Admin: 06/24/19 21:50 Dose: 10 mg Documented by: Ondansetron HCl (Zofran) 4 mg IV Q8H PRN PRN PRN Reason: NAUSEA/VOMITING Pantoprazole Sodium (Protonix) 20 mg PO DAILY [facility] Last Admin: 06/24/19 10:34 Dose: 20 mg Documented by: Potassium Chloride (K-Dur) 20 meq PO BIDCM [facility] Last Admin: 06/24/19 17:52 Dose: 20 meq Documented by: Pramipexole Dihydrochloride (Mirapex) 1 mg PO BID [facility] Last Admin: 06/24/19 21:52 Dose: 1 mg Documented by: Sodium Chloride () 10 - 40 ml IV UD PRN PRN Reason: SALINE FLUSH Topiramate (Topamax) 25 mg PO QHS [facility] Last Admin: 06/24/19 21:51 Dose: 25 mg Documented by: Trazodone HCl (Desyrel) 100 mg PO QHS [facility] Last Admin: 06/24/19 21:49 Dose: 100 mg Documented by: Warfarin Sodium (Coumadin (Pbkc)) 5 mg PO DAILY@1700 [facility] Last Admin: 06/24/19 17:53 Dose: 5 mg Documented by: Medical Necessity - Tobacco Use Smoking Status: Current every day smoker Tobacco Use: Cigarettes Assessment/Plan All Active Problems Confusion (Acute) Headache (Acute) UTI (urinary tract infection) (Acute) Acute delirium (Acute) The patient is a 73 year old F admitted with altered mental status and assessment of sepsis secondary to acute cystitis made. Urine cultures came back positive for E. coli patient treated appropriately initial plan to discharge patient home placed on hold following developmental status migrainosus subsequently started on Depakote per recommendations from neurology. 1. Sepsis secondary to acute cystitis with E. coli patient was admitted to the regular nursing floor started on Rocephin. Urine cultures came back positive for E. coli antibiotics switched to Keflex 2. Acute kidney injury resolved with rehydration 3. Acute metabolic encephalopathy secondary to acute kidney injury resolved 4. Hypokalemia corrected per protocol 5. Hypomagnesemia corrected per protocol 6. New onset diabetes mellitus type 2 hemoglobin A1c obtained on admission came back at 8. Plan is for patient to be discharged on metformin prescription already written 7. Migraine with acute exacerbation patient discharge was discontinued as a result. Consult was placed to neurology Case discussed with Dr. Vazquez his note and recommendations reviewed and he recommended treating patient with Depakote for 24 to 48 hours. 8. Hypertension-blood pressure controlled, home medications continued with dose adjustment as needed 9. Paroxysmal atrial fibrillation patient was on Coumadin INR was subtherapeutic dose was increased 10. Dyslipidemia 11. Depression patient is on Cymbalta as well as trazodone 12. Seasonal allergies on Zyrtec and Singulair 13. Coronary artery disease with previous CABG 14. DVT prophylaxis SC heparin Clinical Impression(s) from Imaging Studies Brain CT 06/22/19 12:36 IMPRESSION: Chronic involutional changes of the brain. Electronically Signed: Ander Grider, at 13:35 EDT , Service support , Chest X-Ray 06/22/19 12:36 IMPRESSION: Findings suggestive of intimal linear atelectasis at the lung bases. 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 Small old left cerebellar infarct Electronically Signed: Carlos Louis MD at 19:29 EDT , Service support , Code Visit Inpatient E&M: 83784 Subs Hosp L2
[2019-06-25] MEDS: Fenofibrate 48 MG Tablet PO (08:18)
[2019-06-25] MEDS: Magnesium Oxide 400 MG Tablet PO ×2 (08:19→16:27)
[2019-06-25 08:58] LABS: Absolute Lymphocyte Count 1.87 X10^3/uL (0.83-4.51); Absolute Neutrophil Count 2.6 X10^3/uL (2.0-7.7); Basophil# 0.01 X10^3/uL; Basophil% 0.2 % (0-1); Eosinophil# 0.08 X10^3/uL; Eosinophils% 1.6 % (0-5); Hematocrit 27.2 % (37-47); Hemoglobin 9.2 g/dL (12.0-15.0); Lymphocyte # 1.87 X10^3/ul (4.0); Lymphocyte % 38.1 % (19-41); Mean Corp Hgb Conc 33.8 g/dL (32-36); Mean Corpuscular Volume 88.6 fL (81-99); Mean Platelet Vol. 10.3 fl (6.2-12.0); Monocyte# 0.34 X10^3/uL; Monocyte% 6.9 % (0-10); NRBC Flagged by Analyzer 0 % (0-5); Neutrophil # 2.56 X10^3/uL (2.7-7.7); Neutrophil % 52.2 % (47-70); Platelet Count 189 K/mm3 (150-450); RBC Distribution Width CV 13.3 % (11.6-14.6); RBC Distribution Width SD 43.2 fl (35.1-43.9); Red Blood Count 3.07 M/mm3 (4.2-5.4); White Blood Count 4.9 K/mm3 (4.4-11.0)
[2019-06-25 09:29] LABS: Anion Gap 9 (5-15); BUN 11 mg/dL (7-18); BUN/Creat Ratio 18.8 RATIO (10-20); Calcium,Total 8.5 mg/dL (8.5-10.1); Chloride 110 mmol/L (98-107); Creatinine, Serum 0.59 mg/dL (0.55-1.02); EST Glomerular Filtration Rate 108 mL/min (>60); Est Glom Filt Rate - Afr Amer 130 mL/min (>60); Estimated Creatinine Clearance 37.06 ml/min; Glucose 131 mg/dL (74-106); Magnesium 1.7 mg/dL (1.6-2.6); Potassium 3.6 mmol/L (3.5-5.1); Sodium Level 141 mmol/L (136-145)
[2019-06-25] MEDS: Heparin Injection (Vial) 5,000 UNIT/ML VIAL 5000 UNIT SC ×2 (10:22→22:07)
[2019-06-25] MEDS: Loratadine 10 MG Tablet PO (10:23)
[2019-06-25] MEDS: Clopidogrel Bisulfate 75 MG Tablet PO (10:23)
[2019-06-25] MEDS: Pramipexole Di-HCl 1 MG Tablet PO ×2 (10:24→21:57)
[2019-06-25] MEDS: Metoprolol(XL)Succ 25 MG Tablet PO (10:24)
[2019-06-25] MEDS: Isosorbide Mononitrate 20 MG Tablet 10 MG PO ×2 (10:25→21:57)
[2019-06-25] MEDS: Pantoprazole Sodium 20 MG Tablet PO (10:25)
[2019-06-25 10:27] LABS: International Normalized Ratio 2.3; Prothrombin Time (Protime)PT. 25.5 SECONDS (11.7-14.9)
[2019-06-25 11:41] LABS: Bedside Glucose 159 mg/dL (70-110)
[2019-06-25] MEDS: Cephalexin 500 MG Capsule PO ×2 (13:26→21:58)
[2019-06-25 16:41] LABS: Bedside Glucose 155 mg/dL (70-110)
--- NOTE | 2019-06-25 18:14 | NURSING ---
Dr. Epps called in, informed Dgtr has left and stated she would follow up later. Aware per Dr. Epps no transfers to [facility] at this time.
--- NOTE | 2019-06-25 20:34 | NURSING ---
Talked to pt's daughter Terri (Home # [phone]). Terri is concerned about her mother. States her mom is normally independent with the exception of bathing. Terri talked to her mom 245 pm today and felt she was completely with it. Then her sister called and talked to the pt after 3pm and the pt was saying things that didn't make sense. Terri was concerned that the pt isn't receiving any antibiotics. Reviewed the MAR and stated that she did get IV antibiotics yesterday and oral today. Informed Terri that Dr. Soto was notified that the family would like the pt transferred to [facility]. Dr. Soto stated that she would bring it up to Dr. Epps in the morning and that the [facility] often takes days to accept a transfer. Terri verbalized understanding. Informed Terri that there is a meeting planned for tomorrow morning with Dr. Epps & family (per charge nurse). Terri stated that she can't make it early in the morning. Her daughter was in a car accident a week ago so she has to be able to help her in the morning. Stated that she has lost her second job because of all of this. Patient advocate number was given to Terri.
[2019-06-25] MEDS: 0.9% Normal Saline 1,000 ML 50 ML IV (20:58)
[2019-06-25] MEDS: 0.9% NaCl Peripheral Flush Adult/Peds IV ×2 (21:15→21:51)
[2019-06-25] MEDS: Topiramate 25 MG Tablet PO (21:57)
[2019-06-25] MEDS: Montelukast 10 MG Tablet PO (21:58)
[2019-06-25] MEDS: DULoxetine Hcl 60 MG Capsule PO (21:58)
[2019-06-25] MEDS: traZODone 100 MG Tablet PO (21:58)
[2019-06-25 22:16] LABS: Bedside Glucose 123 mg/dL (70-110)
[2019-06-26 02:10] VITALS: BP 142/74; PULSE 88; RESP 16; TEMP 36.5; O2SAT 95
[2019-06-26] MEDS: Cephalexin 500 MG Capsule PO (05:32)
[2019-06-26 06:45] LABS: Bedside Glucose 109 mg/dL (70-110)
[2019-06-26 06:55] LABS: International Normalized Ratio 2.6; Prothrombin Time (Protime)PT. 28.3 SECONDS (11.7-14.9)
[2019-06-26] MEDS: Acetaminophen 325 MG Tablet 650 MG PO (07:07)
[2019-06-26 07:14] LABS: Anion Gap 10 (5-15); BUN 9 mg/dL (7-18); BUN/Creat Ratio 17.3 RATIO (10-20); Calcium,Total 8.9 mg/dL (8.5-10.1); Chloride 109 mmol/L (98-107); Creatinine, Serum 0.52 mg/dL (0.55-1.02); EST Glomerular Filtration Rate 124 mL/min (>60); Est Glom Filt Rate - Afr Amer 150 mL/min (>60); Estimated Creatinine Clearance 37.06 ml/min; Glucose 120 mg/dL (74-106); Potassium 3.5 mmol/L (3.5-5.1); Sodium Level 139 mmol/L (136-145)
[2019-06-26 07:22] LABS: Absolute Lymphocyte Count 1.87 X10^3/uL (0.83-4.51); Absolute Neutrophil Count 2.8 X10^3/uL (2.0-7.7); Basophil# 0.02 X10^3/uL; Basophil% 0.4 % (0-1); Eosinophil# 0.16 X10^3/uL; Eosinophils% 3.1 % (0-5); Hematocrit 31.7 % (37-47); Hemoglobin 10.7 g/dL (12.0-15.0); Lymphocyte # 1.87 X10^3/ul (4.0); Mean Corp Hgb Conc 33.8 g/dL (32-36); Mean Corpuscular Hgb 30.3 pg (27.0-32.0); Mean Corpuscular Volume 89.8 fL (81-99); Mean Platelet Vol. 10.2 fl (6.2-12.0); Monocyte# 0.31 X10^3/uL; NRBC Flagged by Analyzer 0 % (0-5); Neutrophil # 2.77 X10^3/uL (2.7-7.7); Neutrophil % 53.3 % (47-70); Platelet Count 241 K/mm3 (150-450); RBC Distribution Width CV 13.4 % (11.6-14.6); RBC Distribution Width SD 44.3 fl (35.1-43.9); Red Blood Count 3.53 M/mm3 (4.2-5.4); White Blood Count 5.2 K/mm3 (4.4-11.0)
--- NOTE | 2019-06-26 08:11 | NURSING ---
left message for and daughter requesting a return call
--- NOTE | 2019-06-26 08:29 | DCINST_ITS ---
- Discharge Diagnoses Current Active Problems: Current Active and Chronic Problems Confusion (Acute) Headache (Acute) COPD (chronic obstructive pulmonary disease) (Chronic) History of colon cancer (Chronic) Hyperlipidemia (Chronic) Migraine (Chronic) Status post coronary artery bypass graft (Chronic) Coronary artery disease (Chronic) Status post CABG and stents. Atrial fibrillation (Chronic) Hypertension (Chronic) UTI (urinary tract infection) (Acute) Acute delirium (Acute) You will use the following diet at home:: No restrictions Allergies/Adverse Reactions: Allergies Iodinated Contrast Media [CONTRASTS] Allergy (Mild, Verified 06/22/19 12:49) Unknown pt unknown of allergy reaction Medications to take at Discharge Cetirizine HCl 10 mg PO DAILY 06/22/19 Clopidogrel Bisulfate [Clopidogrel] 75 mg PO DAILY 06/22/19 Duloxetine Hcl [Cymbalta] 60 mg PO QHS 06/22/19 Ergocalciferol [Vitamin D] 50,000 unit PO MO 06/22/19 Fenofibrate 54 mg PO DAILY 06/22/19 Hydrocodone/Acetaminophen [Hydrocodone-Acetamin 5-325 mg] 1 tab PO BID 06/22/19 Isosorbide Mononitrate 10 mg PO BID 06/22/19 Metoprolol Succinate [Toprol Xl] 25 mg PO DAILY 06/22/19 Montelukast [Singulair] 10 mg PO QHS 06/22/19 Omeprazole 20 mg PO DAILY 06/22/19 Ropinirole HCl 2 mg PO BID 06/22/19 Topiramate 25 mg PO QHS 06/22/19 Trazodone HCl 100 mg PO QHS 06/22/19 Warfarin [Coumadin] 3 mg PO DAILY 06/22/19 Cephalexin [Keflex] 500 mg PO TID #15 cap 06/24/19 Magnesium Oxide [Mag-Ox 400] 400 mg PO BIDCM #30 tab 06/24/19 Metformin HCl [Glucophage] 500 mg PO BID #60 tab 06/24/19 Potassium Chloride [K-Dur] 20 meq PO BIDCM #30 tab 06/24/19 The following prescriptions were given: Metformin HCl [Glucophage] 500 mg PO BID #60 tab [facility]: [id number] Potassium Chloride [K-Dur] 20 meq PO BIDCM #30 tab Transmission Status: [id number] Cephalexin [Keflex] 500 mg PO TID #15 cap Transmission Status: Received by [facility] Magnesium Oxide [Mag-Ox 400] 400 mg PO BIDCM #30 tab Transmission Status: Received by [id number] Primary Care Physician: Cyndi Gutierrez, ARTI-C [Primary Care Provider] - Please follow up with your Primary Care Physician in: in 5-7 days for repeat INR Test Results: Test results from this visit will be discussed in further detail at your follow- up appointment, if applicable. Proposed Discharge Date: 06/26/19
[2019-06-26 09:01] VITALS: BP 141/61; PULSE 86; RESP 18; TEMP 37.1; O2SAT 97
[2019-06-26 09:05] VITALS: PULSE 80
[2019-06-26 09:12] VITALS: PULSE 82
[2019-06-26] MEDS: Metoprolol(XL)Succ 25 MG Tablet PO (09:12)
[2019-06-26] MEDS: Fenofibrate 48 MG Tablet PO (09:12)
[2019-06-26] MEDS: Isosorbide Mononitrate 20 MG Tablet 10 MG PO (09:13)
[2019-06-26] MEDS: Heparin Injection (Vial) 5,000 UNIT/ML VIAL 5000 UNIT SC (09:13)
[2019-06-26] MEDS: Pramipexole Di-HCl 1 MG Tablet PO (09:13)
[2019-06-26] MEDS: Loratadine 10 MG Tablet PO (09:14)
[2019-06-26] MEDS: Magnesium Oxide 400 MG Tablet PO (09:14)
[2019-06-26] MEDS: Pantoprazole Sodium 20 MG Tablet PO (09:14)
[2019-06-26] MEDS: Clopidogrel Bisulfate 75 MG Tablet PO (09:15)
--- NOTE | 2019-06-26 09:46 | NURSING ---
was able to get ahold of pt's daughter, no answer from . discussed request made last night of request to transfer to [facility] and pt agreeable to transfer to Dr. Epps. discuss pt's response to transfer per primary RN. Pt's daughter gave verbal consent for transfer to 2 RNs. pt was also connected via phone w/ daughter. Primary RN aware. aware transport arrangements being made by company secretary. pt going to [facility], H50 bed 13, unit phone [phone] Dr. Giancarlo Baer (daughter given this information)
--- NOTE | 2019-06-26 10:08 | NURSING ---
Report called to Aaron at [facility] at [phone].
[2019-06-26] MEDS: 0.9% NaCl Peripheral Flush Adult/Peds IV (10:13)
--- NOTE | 2019-06-26 10:19 | PCM.DC.SUM ---
Discharge Date and Diagnosis - Problem List Patient Problems: Active and Suspected Problems Confusion (Acute) Headache (Acute) UTI (urinary tract infection) (Acute) Acute delirium (Acute) Date of Admission: 06/22/19 Date of Discharge: 06/26/19 - Primary Discharge Diagnosis Active and Suspected Problems Confusion (Acute) Headache (Acute) UTI (urinary tract infection) (Acute) Acute delirium (Acute) - Secondary Discharge Diagnosis Chronic Problems COPD (chronic obstructive pulmonary disease) (Chronic) History of colon cancer (Chronic) Hyperlipidemia (Chronic) Migraine (Chronic) Status post coronary artery bypass graft (Chronic) Coronary artery disease (Chronic) Status post CABG and stents. Atrial fibrillation (Chronic) Hypertension (Chronic) Hospital Course and Treatment Summary of Care Provided: The patient is a 73 year old F admitted with altered mental status and assessment of sepsis secondary to acute cystitis made. Urine cultures came back positive for E. coli patient treated appropriately initial plan to discharge patient home placed on hold following developmental status migrainosus subsequently started on Depakote per recommendations from neurology. 1. Sepsis secondary to acute cystitis with E. coli patient was admitted to the regular nursing floor started on Rocephin. Urine cultures came back positive for E. coli antibiotics switched to Keflex 2. Migraine with acute exacerbation patient discharge was discontinued as a result. Consult was placed to neurology Case discussed with Dr. Vazquez his note and recommendations reviewed and he recommended treating patient with Depakote for 24 to 48 hours. Patient's family requested for patient to be transferred to [facility] given her previous history of multiple CVAs and TIA and history of CEA 3. Acute metabolic encephalopathy secondary to acute kidney injury resolved 4. Hypokalemia corrected per protocol 5. Hypomagnesemia corrected per protocol 6. New onset diabetes mellitus type 2 hemoglobin A1c obtained on admission came back at 8. Prescription for metformin was written and sent to patient's pharmacy prior to her transfer 7. History of multiple CVAs and TIAs as well CEA on the L 8. Hypertension-blood pressure controlled, home medications continued with dose adjustment as needed 9. Paroxysmal atrial fibrillation patient was on Coumadin INR was subtherapeutic admission. Patient INR at the time of discharge was therapeutic 10. Dyslipidemia 11. Depression patient is on Cymbalta as well as trazodone 12. Seasonal allergies on Zyrtec and Singulair 13. Coronary artery disease with previous CABG 14. DVT prophylaxis SC heparin Patient Problems: Active and Suspected Problems Confusion (Acute) Headache (Acute) UTI (urinary tract infection) (Acute) Acute delirium (Acute) - Physical Exam General: Oriented x3 HEENT: Atraumatic Lungs: Diminished Cardiovascular: Regular rate Neurological: Neuro grossly intact Vital Signs Temp Pulse Resp BP Pulse Ox 98.7 F 82 18 141/61 H 97 06/26/19 09:01 06/26/19 09:12 06/26/19 09:01 06/26/19 09:01 06/26/19 09:01 Oxygen Flow Rate (L/min) 2 Oxygen Delivery Method Room Air Weight: 49.895 kg Body Mass Index (BMI) 21.4 Intake and Output for Last 24 Hours 06/24/19 06/25/19 06/26/19 23:59 23:59 23:59 Intake Total 4533.17 / 4721.50 1491.67 / 1791.67 1020.00 / 1020.00 Output Total 400 / 400 Balance 4533.17 / 4721.50 1491.67 / 1791.67 620.00 / 620.00 Microbiology Past 72 Hours 06/22/19 16:16 Blood Culture - Preliminary Blood Culture (Wb) - Right Hand No growth in 48 hours. 06/22/19 16:12 Blood Culture - Preliminary Blood Culture (Wb) - Right Forearm No growth in 48 hours. 06/22/19 14:30 Urine Culture - Final Urine Catheter - Catheter Presumptive E. coli Laboratory Tests Past 24 Hrs 06/25/19 06/26/19 06/26/19 09:40 06:05 06:05 WBC 5.2 RBC 3.53 L Hgb 10.7 L Hct 31.7 L MCV 89.8 MCH 30.3 MCHC 33.8 RDW Std Deviation 44.3 H RDW Coeff of Saige 13.4 Plt Count 241 MPV 10.2 Immature Gran % (Auto) 1.200 H Neut % (Auto) 53.3 Lymph % (Auto) 36.0 Wirt % (Auto) 6.0 Eos % (Auto) 3.1 Baso % (Auto) 0.4 Absolute Neuts (auto) 2.8 Absolute Lymphs (auto) 1.87 Nucleated RBC % 0 PT 25.5 H INR 2.3 Sodium 139 Potassium 3.5 Chloride 109 H Carbon Dioxide 20.0 L Anion Gap 10 BUN 9 Creatinine 0.52 L Estim Creat Clear Calc 37.06 Est GFR (MDRD) Af Amer 150 Est GFR (MDRD) Non-Af 124 BUN/Creatinine Ratio 17.3 Glucose 120 H Calcium 8.9 06/26/19 06:05 WBC RBC Hgb Hct MCV MCH MCHC RDW Std Deviation RDW Coeff of Saige Plt Count MPV Immature Gran % (Auto) Neut % (Auto) Lymph % (Auto) Wirt % (Auto) Eos % (Auto) Baso % (Auto) Absolute Neuts (auto) Absolute Lymphs (auto) Nucleated RBC % PT 28.3 H INR 2.6 Sodium Potassium Chloride Carbon Dioxide Anion Gap BUN Creatinine Estim Creat Clear Calc Est GFR (MDRD) Af Amer Est GFR (MDRD) Non-Af BUN/Creatinine Ratio Glucose Calcium POC Glucose 06/26/19 06/25/19 06/25/19 06:41 22:03 16:16 POC Glucose 109 123 H 155 H 06/25/19 11:37 POC Glucose 159 H Discharge Diet: 1800 Calorie Control Diet Home Medications: Medications to take at Discharge Cetirizine HCl 10 mg PO DAILY 06/22/19 Clopidogrel Bisulfate [Clopidogrel] 75 mg PO DAILY 06/22/19 Duloxetine Hcl [Cymbalta] 60 mg PO QHS 06/22/19 Ergocalciferol [Vitamin D] 50,000 unit PO MO 06/22/19 Fenofibrate 54 mg PO DAILY 06/22/19 Hydrocodone/Acetaminophen [Hydrocodone-Acetamin 5-325 mg] 1 tab PO BID 06/22/19 Isosorbide Mononitrate 10 mg PO BID 06/22/19 Metoprolol Succinate [Toprol Xl] 25 mg PO DAILY 06/22/19 Montelukast [Singulair] 10 mg PO QHS 06/22/19 Omeprazole 20 mg PO DAILY 06/22/19 Ropinirole HCl 2 mg PO BID 06/22/19 Topiramate 25 mg PO QHS 06/22/19 Trazodone HCl 100 mg PO QHS 06/22/19 Warfarin [Coumadin] 3 mg PO DAILY 06/22/19 Cephalexin [Keflex] 500 mg PO TID #15 cap 06/24/19 Magnesium Oxide [Mag-Ox 400] 400 mg PO BIDCM #30 tab 06/24/19 Metformin HCl [Glucophage] 500 mg PO BID #60 tab 06/24/19 Potassium Chloride [K-Dur] 20 meq PO BIDCM #30 tab 06/24/19 Following Prescrptions Were Given to Patient: Metformin HCl [Glucophage] 500 mg PO BID #60 tab Transmission Status: [facility] Potassium Chloride [K-Dur] 20 meq PO BIDCM #30 tab Transmission Status: Received by [facility] Cephalexin [Keflex] 500 mg PO TID #15 cap Transmission Status: Received by [facility] 181 Magnesium Oxide [Mag-Ox 400] 400 mg PO BIDCM #30 tab Transmission Status: Received by [facility]12 Primary Care Physician: Cyndi Gutierrez NP-C [Primary Care Provider] - Please follow up with your Primary Care Physician in: in 5-7 days for repeat INR Disposition: Acute care Hospital - [facility] Minutes spent on discharge:: 45 Patient Condition:: Stable Medical Necessity - Tobacco Use Smoking Status: Current every day smoker Tobacco Use: Cigarettes Meaningful Use Info Meaningful Use Diagnoses (Choose all that apply): None applicable Code Visit Inpatient E&M: 76646 Disch Hosp
--- NOTE | 2019-06-28 09:30 | CASEMGMT ---
Call placed to [facility] at [phone]. [employer] states referral received with start of care noted to be today. States she will message the team to return my call regarding acceptance and ability to start care today.
--- NOTE | 2019-06-28 10:51 | CASEMGMT ---
Addendum entered and electronically signed by Bela Gonzales RN 06/28/19 10:57: Correction: phone number for [facility] was [phone] Martha's phone number from [facility]: [phone] Original Note: JESUS WHIPPLE Discharge Follow-up Phone Call: CRICKETE: 9 Strata: 3 Call Date: 06/28/19 Discharge Date: 06/26/19 Time of Call: 1050 Duration: 0 ? Admitting Diagnosis: UTI, confusion Received call from Martha at [facility] regarding acceptance of pt. Per Martha, the pt's PCP must provide them with orders and confirm follow-up prior to the start of care. They have attempted 3 times this AM to contact pt's PCP Cyndi Gutierrez NP but have only received a busy signal. This JESUS WHIPPLE attempted to contact [employer] at [phone] ([facility]) and left a message requesting a return call regarding Cyndi Gutierrez's patient. Attempted follow-up call to pt's home phone number and received voicemail. A message was left requesting a return call. Marisol Gonzales RN
--- NOTE | 2019-06-28 11:08 | CASEMGMT ---
Home health care follow-up: Spoke with Jennifer at [facility] who confirmed she has spoken with [facility] and provided verbal orders for home health services. Aware pt was transferred to [facility] and will follow-up after discharge from their facility. Marisol Gonzales RN
== END 2019-06-26 10:20 | disposition short-term general hospital (02) | DRG 871 ==
LOC: ED 15:50 → MS3 16:24
PROVIDERS: Internal Medicine; Psychiatry & Neurology Neurology; Admitting Provider Hospitalist; Emergency Provider Emergency Medicine; Family Provider Nurse Practitioner Adult Health; PCP Nurse Practitioner Adult Health; Referring Provider Hospitalist; Visit Provider Internal Medicine
DX: A41.9 Sepsis, unspecified organism (principal); G93.41 Metabolic encephalopathy; N17.9 Acute kidney failure, unspecified; E87.1 Hypo-osmolality and hyponatremia; N30.00 Acute cystitis without hematuria; E87.2 Acidosis; I25.10 Atherosclerotic heart disease of native coronary artery without angina pectoris; I10 Essential (primary) hypertension; E78.5 Hyperlipidemia, unspecified; F17.210 Nicotine dependence, cigarettes, uncomplicated; G25.81 Restless legs syndrome; B96.20 Unspecified Escherichia coli [E. coli] as the cause of diseases classified elsewhere; E87.6 Hypokalemia; G43.901 Migraine, unspecified, not intractable, with status migrainosus; E83.42 Hypomagnesemia; Z95.5 Presence of coronary angioplasty implant and graft; Z79.01 Long term (current) use of anticoagulants; Z95.1 Presence of aortocoronary bypass graft; Z85.038 Personal history of other malignant neoplasm of large intestine; Z90.49 Acquired absence of other specified parts of digestive tract; E11.9 Type 2 diabetes mellitus without complications; F32.9 Major depressive disorder, single episode, unspecified; J30.2 Other seasonal allergic rhinitis; I48.0 Paroxysmal atrial fibrillation; Z86.73 Personal history of transient ischemic attack (TIA), and cerebral infarction without residual deficits
CPT/HCPCS: 36415; 70450; 70551; 71045; 80048; 80053; 81001; 82962; 83036; 83605; 83735; 84484; 85025; 85610; 85652; 87040; 87086; 87088; 87186; 93005; 97162; 97166; 97535; 97802; 99285; 99406; J7030; J7040; J7050; P9612; A4216

== ENCOUNTER → 2019-08-13 11:56 | Outpatient (CLI) | payer MEDICARE, SELFPAY ==
[2019-06-22 16:51] VITALS: BMI 21.4
[2019-08-13 12:11] LABS: Bacteria 0 SEEN /hpf (None Seen); Mucous, Urine 0 SEEN /hpf (<or=2+); Red Blood Cells-Urine 0 SEEN /hpf (0-5); Squamous Epithelial Cells - UA 0 SEEN /hpf (5-10)
[2019-08-13 12:25] LABS: Hematocrit 42.5 % (37-47); Hemoglobin 14.3 g/dL (12.0-15.0); Mean Corp Hgb Conc 33.6 g/dL (32-36); Mean Corpuscular Hgb 30.1 pg (27.0-32.0); Mean Corpuscular Volume 89.5 fL (81-99); Mean Platelet Vol. 9.2 fl (6.2-12.0); Platelet Count 298 K/mm3 (150-450); RBC Distribution Width CV 12.9 % (11.6-14.6); RBC Distribution Width SD 42.5 fl (35.1-43.9); Red Blood Count 4.75 M/mm3 (4.2-5.4); White Blood Count 11.3 K/mm3 (4.4-11.0)
[2019-08-13 12:29] LABS: Color, Urine Yellow (Yellow); Glucose, Dipstick Normal (Normal); Ketone-Dipstick Negative (Negative); Leukocyte Esterase-Dipstick 500 /ul (Negative); Nitrite-Dipstick Positive (Negative); Occult Blood-Urine 50 /ul (Negative); Protein-Dipstick 100 mg/dl (Negative); Specific Gravity, Urine 1.015 (1.002-1.030); Urine Clarity Cloudy (Clear); Urine Urobilinogen 1 mg/dl (Normal)
[2019-08-13 12:36] LABS: Urine Bilirubin Dipstick 1 mg/dL (Negative)
[2019-08-13 12:37] LABS: White Blood Cells >100 SEEN /hpf (0-5)
== END ==
PROVIDERS: Family Provider Nurse Practitioner Adult Health; PCP Nurse Practitioner Adult Health; Referring Provider Nurse Practitioner Adult Health; Visit Provider Nurse Practitioner Adult Health
DX: R30.0 Dysuria (principal); K92.1 Melena
CPT/HCPCS: 36415; 81001; 85027; 87086; 87088; 87186

== ENCOUNTER → 2019-11-02 13:02 | Outpatient (CLI) | payer MEDICARE, SELFPAY ==
[2019-06-22 16:51] VITALS: BMI 21.4
--- NOTE | 2019-11-02 13:23 | MRI_ITS ---
STUDY: MRI LUMBAR SPINE WITHOUT CONTRAST REASON FOR EXAM: Female, 73 years old. LOW BACK PAIN INTO HIPS BILATERALLY, NKI, BACK INJECTION 08/13 TECHNIQUE: Standardized fat and water weighted pulse sequences were obtained in the sagittal and axial planes. COMPARISON: None FINDINGS: T12-L1: Normal endplates. Normal disc height, hydration and morphology. Normal bilateral facet joints. Normal central canal and bilateral lateral recesses. Normal bilateral intervertebral neural foramina. Normal lumbar lordosis. There is no substantial scoliosis. Normal conus medullaris that terminates at the L1. L1-2: Normal endplates. Normal disc height, hydration and morphology. Normal bilateral facet joints. Normal central canal and bilateral lateral recesses. Normal bilateral intervertebral neural foramina. L2-3: Normal endplates. Normal disc height, hydration and morphology. Normal bilateral facet joints. Normal central canal and bilateral lateral recesses. Normal bilateral intervertebral neural foramina. L3-4: Mild bilateral facet hypertrophy and moderate ligament flavum hypertrophy. No disc protrusion, spinal stenosis, or neural foraminal stenosis. L4-5: Moderate the lateral facet hypertrophy and ligament flavum hypertrophy. 2 mm of anterolisthesis of L4 on L5 with a mild broad disc protrusion produces mild spinal stenosis with mild bilateral recess stenosis and mild bilateral neural foraminal stenosis. L5-S1: Mild broad disc protrusion produces mild spinal stenosis with mild bilateral lateral recess stenosis and mild bilateral neural foraminal stenosis. Normal visualized sacral ala. Multiple right renal cysts. MRI/Spine Lumbar (Routine) IMPRESSION: Multilevel degenerative changes, as described above. Electronically Signed: Dusty Dietz MD at 15:02 EST Tel , Service support ,
[2019-11-02 14:17] LABS: Mucous, Urine 0 SEEN /hpf (<or=2+); Red Blood Cells-Urine 0 SEEN /hpf (0-5)
[2019-11-06 12:53] LABS: Color, Urine Yellow (Yellow); Glucose, Dipstick Normal (Normal); Ketone-Dipstick Negative (Negative); Leukocyte Esterase-Dipstick 500 /ul (Negative); Nitrite-Dipstick Positive (Negative); Occult Blood-Urine 25 /ul (Negative); Protein-Dipstick 30 mg/dl (Negative); Specific Gravity, Urine 1.015 (1.002-1.030); Urine Bilirubin Dipstick Negative (Negative); Urine Clarity Cloudy (Clear); Urine Urobilinogen Normal (Normal); Urine pH 6.5 (5.0 - 8.0)
[2019-11-06 13:06] LABS: Bacteria 2+ /hpf (None Seen); Squamous Epithelial Cells - UA 0-5 SEEN /hpf (5-10); White Blood Cells >100 SEEN /hpf (0-5)
== END ==
PROVIDERS: Family Provider Nurse Practitioner Adult Health; PCP Nurse Practitioner Adult Health; Referring Provider Anesthesiology Pain Medicine; Visit Provider Anesthesiology Pain Medicine
DX: M54.9 Dorsalgia, unspecified (principal); M79.606 Pain in leg, unspecified
CPT/HCPCS: 72148; 81001; 87086; 87088; 87186

== ENCOUNTER 2020-08-29 20:34 | Emergency (ER) | payer MEDICARE, SELFPAY ==
[2019-06-22 16:51] VITALS: BMI 21.4
[2020-08-29 20:35] VITALS: PULSE 0; TEMP 36.1; BMI 24.4
--- NOTE | 2020-08-29 20:44 | ED.VIS.GEN ---
History of Present Illness Chief Complaint: CPR Narrative: Patient presents for CPR. Onset of symptoms was witnessed but it was about an hour prior to arrival she was worked up by EMS. She received multiple rounds of epinephrine, bicarb, amiodarone. She arrives in asystole. CPR is in progress, patient has a Matthew device and a Diego airway. Past Medical History Past Medical History: - - Extensive of cardiac history Review of Systems ROS: Unable to Obtain Physical Exam Vital Signs/Narrative: Vital Signs Temp Pulse 08/29/20 20:35 97 F L 0 L General: - - Primary survey: Airway has a Diego airway, she has breath sounds through bag bag ventilation she has no pulse, GCS is 3 Head: Normocephalic Eyes: - - Pupils are 4 mm and fixed and nonreactive ENT: Dry mucous membranes Cardiovascular: - - No pulses Respiratory: - - No spontaneous breathing Abdomen: Soft Extremities: No edema Skin: - - Ashen and mottled Neurological: - - GCS of 3 Diagnostic/Tx/Re-eval - Medical Decision Making ACLS protocol maintained in the ED however at first pulse check there was no pulse patient was in asystole and a bedside ultrasound showed absolutely no cardiac activity. Her downtime had been about an hour therefore the decision was made to terminate care. Patient was pronounced Critical care time: 20 minutes. Disposition ED Disposition - Plan for ED Patient: Diagnosis: Cardiac arrest
--- NOTE | 2020-08-29 22:26 | ED.RN ---
2035 450ML NORMAL SALINE INFUSED BY EMS
--- NOTE | 2020-08-29 22:45 | ED.RN ---
2034 PER EMS MEDICATIONS GIVEN: EPI 5 DOSES BICARB 2 DOSES ATROPINE 1 DOSE NARCAN 1 2MG DOSE AMIODARONE 150MG - 3 DOSES
== END 2020-08-29 23:30 ==
PROVIDERS: Emergency Provider Emergency Medicine; PCP Nurse Practitioner Adult Health
DX: I46.9 Cardiac arrest, cause unspecified (principal)
CPT/HCPCS: 99282; A4216